=== PATIENT | female | born 2000 | race Caucasian/White ===

== ENCOUNTER → 2022-06-30 15:32 | Outpatient (CLI) | payer OTHER, MEDICAID, SELFPAY ==
[2022-06-30 16:09] LABS: Add Manual Diff / Slide Review NO; Basophils Absolute Auto 0 /uL (0-100); Basophils Percent Auto 0.4 % (0-2); Eosinophils Absolute Auto 100 /uL (0-450); Eosinophils Percent Auto 0.7 % (2-4); Hematocrit 32.6 % (36-46); Hemoglobin 11.2 g/dL (12.0-16.0); Lymphocytes Absolute Auto 1500 /uL (1100-4500); Lymphocytes Percent Auto 21.6 % (25-40); Mean Corpuscular HGB Conc 34.5 % (30-36); Mean Corpuscular Hemoglobin 30.3 PG (26-34); Monocytes Absolute Auto 500 /uL (0-900); Neutrophils Absolute Auto 5000 /uL (1500-7000); Neutrophils Percent Auto 70.3 % (50-75); Platelet Count 228 X10^3/uL (150-400); Red Blood Cell Count 3.71 X10^6/uL (4.0-5.2); Red Cell Distribution Width 13.7 % (11.6-14.8); White Blood Cell Count 7.2 X10^3/uL (4.5-11.0)
[2022-07-01 07:34] LABS: Varicella IgG Antibody <135 index (Immune >165)
[2022-07-01 08:10] LABS: RPR Screen Non Reactive (Non Reactive)
[2022-07-02 18:02] LABS: HIV 1 & 2 Ab/Ag 4th Gen Combo NEGATIVE (NEGATIVE); Hep C Virus Ab w/Reflex Quant NEGATIVE s/c (NEGATIVE); Hepatitis B Surface Antigen NEGATIVE s/c (NEGATIVE); Rubella Antibody IgG 38.8 IU/mL (>15)
[2022-07-02 23:25] LABS: AFP, Serum 37.3 ng/mL (.); Estriol, Free 1.13 ng/mL (.); Inhibin A, Dimeric 217.53 pg/mL (.); Inhibin A, MoM 1.27 (.); Maternal Ethnicity Other (.); Maternal Weight 125 lbs (.); Number of Fetuses No (.); OSBR Risk 1 IN 10000 (.); Results Report (.); Test Results *Screen Negative* (.); hCG, MoM 0.84 (.); hCG, Serum 34646 mIU/mL (.)
== END ==
PROVIDERS: PCP Family Medicine; Referring Provider Obstetrics & Gynecology; Visit Provider Obstetrics & Gynecology
DX: Z34.02 Encounter for supervision of normal first pregnancy, second trimester (principal); Z3A.16 16 weeks gestation of pregnancy
CPT/HCPCS: 36415; 80055; 82105; 82677; 84702; 86336; 86787; 86803; 86850; 86900; 86901; 87077; 87086; 87186; 87389

== ENCOUNTER → 2022-07-27 13:53 | Outpatient (CLI) | payer OTHER, MEDICAID, SELFPAY ==
--- NOTE | 2022-07-27 13:54 | DI.US.S_ITS ---
PROCEDURE: US OB >= 14 WEEKS FETUS INDICATIONS: ANATOMY SCAN OUTSIDE/PRIOR DATING DATA: Last menstrual period (LMP): 03/05/2022 LMP-based estimated date of delivery (MARIA EUGENIA): 12/09/2022. First dating scan (date and location): Today's exam. Estimated date of delivery (MARIA EUGENIA) from first dating scan: Not applicable. The calculations are made using the clinical MARIA EUGENIA of 12/09/2022. TECHNIQUE: Real-time scanning was performed of the fetus, with image documentation and biometric measurements. Endovaginal scanning: Not performed COMPARISON: None. FINDINGS: General: A single living intrauterine gestation is present. Presentation: Breech. Placenta: Placental position is anterior , without previa. Amniotic fluid index: 20.2 cm, normal range is 5-24 cm. Single deepest vertical pocket is 5.4 cm. heart rate: 130 beats per minute. Maternal cervical canal: 4.8 cm long. Normal lower limit is 2.5 cm. biometrics: Biparietal diameter: 4.4 cm, 19 weeks 3 days Head circumference: 16.6 cm, 19 weeks 2 days Abdominal circumference: 14.2 cm, 19 weeks 4 days Femur length: 3.2 cm, 19 weeks 6 days Clinically estimated gestational age: 20 weeks 4 days Composite gestational age from present scan: 19 weeks 4 days Estimated weight and percentile: 304 g, 8th percentile Anatomic survey: Neuro: Ventricles are non-dilated at less than 10 mm. Cisterna magna is normal at 3-11 mm. Cerebellum is normal in size and morphology. Nuchal skin fold: Normal at less than 6 mm between 14-21 weeks gestational age. Face: Nose and lips, facial profile are normal. Spine: No evidence for spina bifida. Heart: 4-chambered heart is present, with normal ventricular outflow tracts. Diaphragm: Diaphragm is intact. Stomach: Left-sided stomach is present. Kidneys: No hydronephrosis. Normal is less than 5 mm in 2nd trimester, less than 7 mm in 3rd trimester. Cord: 3-vessel cord has orthotopic insertion. Bladder: Normal in size. Extremities: All 4 extremities identified. IMPRESSION: Single living intrauterine at 20 weeks 4 days, MARIA EUGENIA of 12/09/2022. Low weight, 304 g and 8 percentile. BALAJI measures 20.2 cm, normal range is 5-24 cm. We strive to produce accurate, complete, and clear reports of imaging services. To assist us in improving patient care, this report was composed using standard report templates and voice recognition software. Therefore, it may contain abnormal punctuation, insertions and/or omissions. Occasional wrong-word or sound-alike substitutions may occur. Though we review the report and make efforts to correct it, we do recommend that the report be read carefully in proper context to recognize any text inaccuracies. Dictated by: Apollo Adamson M.D. on 07/27/2022 at 16:31 Approved by: Apollo Adamson M.D. on 07/27/2022 at 16:35
== END ==
PROVIDERS: PCP Family Medicine; Referring Provider Obstetrics & Gynecology; Visit Provider Obstetrics & Gynecology
DX: O36.5920 Maternal care for other known or suspected poor fetal growth, second trimester, not applicable or unspecified (principal); Z3A.20 20 weeks gestation of pregnancy
CPT/HCPCS: 76811

== ENCOUNTER → 2022-07-28 14:28 | Outpatient (CLI) | payer OTHER, MEDICAID, SELFPAY ==
[2022-07-28 18:58] LABS: Urine N gonorrhoeae NOT DETECTED
[2022-07-28 19:12] LABS: Urine Chlamydia NOT DETECTED
== END ==
PROVIDERS: PCP Family Medicine; Visit Provider Obstetrics & Gynecology
DX: Z34.02 Encounter for supervision of normal first pregnancy, second trimester (principal); Z3A.20 20 weeks gestation of pregnancy
CPT/HCPCS: 87491; 87591

== ENCOUNTER 2022-07-31 18:07 | Observation (INO) | payer OTHER, MEDICAID, SELFPAY ==
[2022-07-31] MEDS: LACTATED RINGERS 1,000 ML 1000 ML IV ×2 (18:50→19:46)
[2022-07-31] MEDS: ONDANSETRON 4 MG/2 ML INJ IV (19:02)
--- NOTE | 2022-07-31 19:11 | DI.US.S_ITS ---
PROCEDURE: US ABDOMEN COMPLETE INDICATIONS: RUQ /RT FLANK PAIN TECHNIQUE: Real-time scanning was performed of the abdominal and retroperitoneal organs, with image documentation. COMPARISON: [facility], US, US OB >= 14 WEEKS FETUS, 07/27/2022, 14:04. FINDINGS: Liver: Liver is normal in size and homogeneous in echotexture. Gallbladder: No findings of gallstones or sludge are seen. The gallbladder wall is not thickened, measuring 3 mm or less. No specific pericholecystic fluid is seen. The sonographic Doll sign is negative. Biliary ducts: Intrahepatic bile ducts are non-dilated. Extrahepatic bile duct caliber measures 2-3 mm. Normal is 6-7 mm or less in diameter, or 10 mm or less post-cholecystectomy. Pancreas: Visualized portions of the pancreas are sonographically normal. Spleen: Spleen is normal in size and homogeneous in echotexture. Kidneys: Kidneys are normal in size and echotexture. Right kidney measures 9.4 cm long; left kidney measures 11.9 cm long. No nephrolithiasis. No solid masses. There is moderate to severe right-sided hydronephrosis seen on the right and mild hydronephrosis seen on the left. The hydronephrosis persists postvoid. Aorta: Not well seen, obscured by overlying bowel gas. Iliacs: Not well seen, obscured by overlying bowel gas. IVC: Intrahepatic inferior vena cava is patent. Miscellaneous: No free abdominal fluid. This patient is , with a measured heart rate of 136 beats per minute. IMPRESSION: Moderate to severe right-sided and mild left-sided hydronephrosis seen. Dictated by: Arslan Sofia M.D. on 07/31/2022 at 19:29 Approved by: Arslan Sofia M.D. on 07/31/2022 at 19:31
[2022-07-31] MEDS: MORPHINE 2 MG/ML INJ 1 MG IV (19:42)
== END 2022-07-31 21:03 | disposition home or self-care (01) ==
PROVIDERS: Admitting Provider Obstetrics & Gynecology; PCP Family Medicine; Referring Provider Obstetrics & Gynecology; Visit Provider Obstetrics & Gynecology
DX: O60.02 Preterm labor without delivery, second trimester (principal); Z3A.21 21 weeks gestation of pregnancy
CPT/HCPCS: 59025; 76700; 96360; 96361; G0378; G0379; J2270; J2405

== ENCOUNTER 2022-08-22 11:32 | Inpatient (IN) | payer OTHER, MEDICAID, SELFPAY ==
[2022-08-22] VITALS (11 sets, daily range): BP systolic 104–120; BP diastolic 55–65; PULSE 90–111; RESP 16–20; TEMP 36.4–37; O2SAT 97–100; BMI 28.2
[2022-08-22 12:12] LABS: Amorphous Sediment Urine 1+; Bacteria Urine Many (>30); Culture Indicated Urine Specimen Cultured; RBC Urine 0-1/HPF (0-5/HPF); WBC Urine 5-10/HPF (0-5/HPF)
--- NOTE | 2022-08-22 12:13 | ED_ITS ---
HPI - General Adult General Chief complaint: Abdominal Pain Stated complaint: pain in rt side, fever, chills, burning on urinat Time Seen by Provider: 08/22/22 11:57 Source: patient Mode of arrival: Ambulatory History of Present Illness HPI narrative: Patient is a 22-year-old female. Is 24 weeks EGA. Approximately 1 month ago was seen by her OB doctor. Was diagnosed with a urinary tract infection. Was placed on 1 antibiotic and was called a couple days later and was told that she needed to switch to something else. The 1st antibiotic per her description sounded like Macrobid. I suspect that the 2nd antibiotic was Keflex. She stated that the 2nd antibiotics caused her quite a bit of GI upset so she did not complete the course of it. She was seen at labor and delivery earlier this month. She was not having any urinary symptoms that time. She was having right-sided flank pain. She stated that she received fluids and had an ultrasound which showed swelling of her kidneys. She does admit that she was not having any urinary symptoms that time. Despite this when she went home she started the antibiotics again that she would left over from the prior visit. She then went on a vacation. She did have some urinary symptoms during her time a vacation however they were not consistent. Over the past 24 hours she stated that she now has dysuria with urgency. She states she is feeling fever and having chills. Is having burning with urination and now has fairly consistent right flank pain. Related Data Home Medications Medication Instructions Recorded Confirmed prenat.vits,lexa,[id number] 1 tab PO DAILY 06/15/22 07/28/22 Allergies Allergy/AdvReac Type Severity Reaction Status Date / Time lactose AdvReac Mild Abdominal Verified 07/28/22 14:22 Pain Review of Systems Constitutional Constitutional: Reports system reviewed and no additional complaints, except as documented Cardiovascular Cardiovascular: Reports system reviewed and no additional complaints, except as documented Respiratory Respiratory: Reports system reviewed and no additional complaints, except as documented Gastrointestinal Gastrointestinal: Reports system reviewed and no additional complaints, except as documented Genitourinary Genitourinary: Reports system reviewed and no additional complaints, except as documented Integumentary/Breasts Skin/Breast: Reports system reviewed and no additional complaints, except as documented Hematologic/Lymphatic On Anticoagulants: No Patient History Medical History Adopted Headache Ovarian cyst Surgical History (Updated 07/03/22 @ 20:43 by Merlyn Sanchez) Anesthesia H/O ovarian cystectomy [place] teeth extracted Family History (Updated 07/03/22 @ 20:43 by Merlyn Sanchez) Mother Mental health problem Social History marital status: unmarried,single number of children: 0 household members: family (parents, sibling & sibling's s/o) lives independently: Yes caregiver/support person: No housing: house pets and animals: Yes (1 dog, fish) education level: high school occupational status: employed current occupational exposures/hazards: No special diane needs: No travel history: recent (domestic only) seatbelt use: always helmet use: Yes water heater temp set < 120 deg: Yes working smoke detector in home: Yes fire extinguisher in home: Yes carbon monox detector in home: Yes firearms in home: Yes firearms unloaded and locked: Yes do you feel safe at home: Yes Smoking Status: Never smoker second hand exposure: No alcohol intake: never substance use type: marijuana (quit when she learned she was ) well-balanced diet: rarely or never daily servings fruits/ve-1 caffeine: No Type(s) of exercise: walking frequency: daily Smoking Status: Never smoker Substance Use Type: does not use Exam Initial Vital Signs Initial Vital Signs: Vital Signs Temperature 98.6 F 08/22/22 11:37 Pulse Rate 105 H 08/22/22 11:37 Respiratory Rate 18 08/22/22 11:37 Blood Pressure 120/58 L 08/22/22 11:37 Pulse Oximetry 99 08/22/22 11:37 Oxygen Delivery Method Room Air 08/22/22 11:37 Const General: cooperative, comfortable and diaphoretic HENMT Head: normal to inspection and normocephalic Resp Effort & Inspection: normal respiratory effort Auscultation: clear to auscultation bilaterally Cardio Rate: tachycardic Rhythm: regular rhythm GI Inspection: normal to inspection Other: Gravid abdomen, no abdominal tenderness Back/Spine/Pelvis Back: CVA tenderness right Skin General: no rashes or lesions noted Neuro General: patient alert, patient awake and moves all extremities Extrem General: capillary refill normal Psych Appearance: grossly normal and well kempt Course Orders Ordered: ED Orders 08/22/22 11:45 Urine Culture Stat Urine Microscopic Stat 08/22/22 12:15 US renal complete Stat 08/22/22 12:19 US OB limited Stat 08/22/22 12:30 Basic Metabolic Panel Stat 08/22/22 12:32 Complete Blood Count AUTO DIFF Stat Lactate (Lactic Acid) Stat Lipase Stat Procalcitonin Stat 08/22/22 12:45 Blood Culture Stat Sodium Chloride (Normal Saline 0.9%) 1,000 mls @ 150 mls/hr IV CONT MAKI Last Admin: 08/22/22 12:53 Dose: 150 mls/hr Documented By: LU Discontinued Medications Hydrocodone Bitart/Acetaminophen (Hydrocodone/Acet 5/325 Tablet) 1 tab PO NOW ONE Stop: 08/22/22 14:47 Last Admin: 08/22/22 14:55 Dose: 1 tab Documented By: CASIMIRO Ceftriaxone Sodium 1,000 mg/ (Sodium Chloride) 100 mls @ 200 mls/hr IV NOW ONE Stop: 08/22/22 12:20 Last Infusion: 08/22/22 13:36 Dose: 0 mls/hr Documented By: Admin: 08/22/22 12:53 Dose: 200 mls/hr Documented By: LU Morphine Sulfate (Morphine 4 Mg/Ml Inj) 4 mg IV NOW ONE Stop: 08/22/22 16:31 Last Admin: 08/22/22 16:43 Dose: 4 mg Documented By: LU Vital Signs Vital signs: Vital Signs - 8 hr 08/22/22 11:37 08/22/22 14:40 08/22/22 14:40 Temperature 98.6 F Pulse Rate 105 H 93 H 90 Respiratory Rate 18 16 Blood Pressure 120/58 L 114/57 L Pulse Oximetry 99 100 100 Oxygen Delivery Method Room Air Room Air 08/22/22 15:00 08/22/22 15:00 08/22/22 15:30 Temperature Pulse Rate 101 H Respiratory Rate Blood Pressure 104/58 L 111/56 L Pulse Oximetry 100 Oxygen Delivery Method Room Air 08/22/22 15:30 08/22/22 16:00 08/22/22 16:00 Temperature Pulse Rate 100 H 98 H Respiratory Rate Blood Pressure 115/60 Pulse Oximetry 100 98 Oxygen Delivery Method 08/22/22 16:30 08/22/22 16:30 08/22/22 17:00 Temperature Pulse Rate 100 H Respiratory Rate Blood Pressure 112/57 L 110/55 L Pulse Oximetry 99 Oxygen Delivery Method 08/22/22 17:00 Temperature Pulse Rate 111 H Respiratory Rate Blood Pressure Pulse Oximetry 97 Oxygen Delivery Method Medical Decision Making Medical Records Medical records reviewed: Yes I reviewed the patient's medical records. Lab Data Lab results reviewed: Yes I reviewed the patient's lab results. 08/22/22 12:32 08/22/22 12:30 Labs: Lab Results 08/22/22 08/22/22 08/22/22 Range/Units 11:45 12:30 12:32 WBC 16.1 H (4.5-11.0) X10^3/uL RBC 2.91 L (4.0-5.2) X10^6/uL Hgb 8.5 L (12.0-16.0) g/dL Hct 25.2 L (36-46) % MCV 86.8 (80-100) fL MCH 29.2 (26-34) PG MCHC 33.7 (30-36) % RDW 13.2 (11.6-14.8) % Plt Count 388 (150-400) X10^3/uL Neut % (Auto) 82.7 H (50-75) % Lymph % (Auto) 6.6 L (25-40) % [place] % (Auto) 10.2 (3-14) % Eos % (Auto) 0.1 L (2-4) % Baso % (Auto) 0.4 (0-2) % Neut # (Auto) 52892 H (8807-6249) /uL Lymph # (Auto) 1100 (9917-8657) /uL [place] # (Auto) 1600 H (0-900) /uL Eos # (Auto) 0 (0-450) /uL Baso # (Auto) 100 (0-100) /uL Sodium 134 L (137-145) mmol/L Potassium 3.2 L (3.4-5.1) mmol/L Chloride 105 (98-107) mmol/L Carbon Dioxide 18 L (22-32) mmol/L BUN 7 (7-17) mg/dL Creatinine 0.38 L (0.52-1.04) mg/dL Estimated GFR > 60 (>60) mL/min BUN/Creatinine Ratio 18.4 (6-22) Glucose 86 (70-100) mg/dL Lactate (0.7-2.1) mmol/L Calcium 8.6 (8.4-10.2) mg/dL Lipase (23-300) U/L Procalcitonin (<0.5) ng/mL Urine RBC 0-1/hpf (0-5/HPF) Urine WBC 5-10/hpf H (0-5/HPF) Amorphous Sediment 1+ Urine Bacteria Many (>30) H (None) Ur Culture Indicated? Specimen cultured 08/22/22 08/22/22 Range/Units 12:32 12:32 WBC (4.5-11.0) X10^3/uL RBC (4.0-5.2) X10^6/uL Hgb (12.0-16.0) g/dL Hct (36-46) % MCV (80-100) fL MCH (26-34) PG MCHC (30-36) % RDW (11.6-14.8) % Plt Count (150-400) X10^3/uL Neut % (Auto) (50-75) % Lymph % (Auto) (25-40) % Ventura % (Auto) (3-14) % Eos % (Auto) (2-4) % Baso % (Auto) (0-2) % Neut # (Auto) (7412-1546) /uL Lymph # (Auto) (7702-1020) /uL Ventura # (Auto) (0-900) /uL Eos # (Auto) (0-450) /uL Baso # (Auto) (0-100) /uL Sodium (137-145) mmol/L Potassium (3.4-5.1) mmol/L Chloride (98-107) mmol/L Carbon Dioxide (22-32) mmol/L BUN (7-17) mg/dL Creatinine (0.52-1.04) mg/dL Estimated GFR (>60) mL/min BUN/Creatinine Ratio (6-22) Glucose (70-100) mg/dL Lactate 0.5 L (0.7-2.1) mmol/L Calcium (8.4-10.2) mg/dL Lipase 86 (23-300) U/L Procalcitonin 0.16 (<0.5) ng/mL Urine RBC (0-5/HPF) Urine WBC (0-5/HPF) Amorphous Sediment Urine Bacteria (None) Ur Culture Indicated? Urine Dip Bedside Urine Glucose Negative Bedside Urine Bilirubin - Negative Bedside Urine Ketone +++ 80 Urine Specific Secretary 1.015 Bedside Urine Occult Blood +/- Bedside Urine pH 6 Bedside Urine Protein + 30 Bedside Urine Urobilinogen - Negative Bedside Urine Nitrite + Positive Bedside Urine Leukocytes + 70 Esterase Point of care testing: Urine Dip Bedside Urine Glucose Negative Bedside Urine Bilirubin - Negative Bedside Urine Ketone +++ 80 Urine Specific Secretary 1.015 Bedside Urine Occult Blood +/- Bedside Urine pH 6 Bedside Urine Protein + 30 Bedside Urine Urobilinogen - Negative Bedside Urine Nitrite + Positive Bedside Urine Leukocytes + 70 Esterase Imaging Data renal US: Radiologist's Impression: PROCEDURE:? US RENAL COMPLETE ? INDICATIONS:? known hydro, EGA 24 weeks now with probable pyelo ? TECHNIQUE:? Real-time scanning was performed of the kidneys and bladder, with image documentation.? ? COMPARISON:? [facility], , US OB LIMITED, 08/22/2022, 13:36.? [facility], , US ABDOMEN COMPLETE, 07/31/2022, 19:44.? [facility], US OB >= 14 WEEKS FETUS, 07/27/2022, 14:04.? [facility], US OB <= 14 WEEKS FETUS, 06/30/2022, 15:18. ? FINDINGS:? ? Kidneys:? Kidneys are normal in size.? Right kidney measures 9.8 cm long; left kidney measures 11.6 cm long.? Right renal cortical thickness is X 1.7 cm; left renal cortical thickness is 1.7 cm.? Renal cortical echotexture is normal.? No nephrolithiasis.? No suspicious solid mass lesions.? ? Moderate right kidney hydronephrosis is seen.? Within the right kidney, multiple echogenic foci can be seen, with the largest measuring up to 5.5 mm.? The proximal right ureter is dilated to 1 cm. ? The previously seen left-sided hydronephrosis is no longer seen.? ? Bladder:? Pre-void bladder volume is 26 mL.? No postvoid residual measurement was obtained, the patient felt no or urge to void.? Pre-void images demonstrate no intraluminal masses or stones.? On pre-void images, neither of the ureteral jets are noted with color Doppler interrogation.? (Of note, ureteral jets may not be detectable in up to 25% of cases due to insufficient differences in specific gravity between ureteral and bladder urine).? ? Miscellaneous:? No free pelvic fluid.? ? Not well seen, obscured by overlying bowel gas. ? ? ? IMPRESSION:? Right kidney hydroureter and hydronephrosis. ? Nonobstructing right-sided kidney stones are seen. ? Resolution of the previously seen left-sided hydronephrosis. US - OB: Radiologist's Impression: PROCEDURE:? US OB LIMITED ? INDICATIONS:? Abdominal pain ? OUTSIDE/PRIOR DATING DATA:? Last menstrual period (LMP):? 03/05/2022.? LMP-based estimated date of delivery (MARIA EUGENIA):? 12/09/2022.? First dating scan (date and location):? 06/30/2022.? Estimated date of delivery (MARIA EUGENIA) from first dating scan:? 12/13/2022. The calculations are made using the clinical MARIA EUGENIA of 12/10/2022.? ? TECHNIQUE: Real-time scanning was performed of the fetus, with image documentation.? Endovaginal scanning:? Performed for additional visualization ? COMPARISON:[facility], , US RENAL COMPLETE, 08/22/2022, 13:20. ? FINDINGS:? A single living intrauterine gestation is present.? Presentation:? Vertex.? Placenta:? Placental position is anterior, without previa.? ? Amniotic fluid index:? 15.7 cm, normal range is 5-24 cm. Single deepest vertical pocket is 4.9 cm.? ? heart rate:? 145 beats per minute.? Maternal cervical canal:? 3 cm long.? Normal lower limit is 2.5 cm.? Clinically estimated gestational age:? 24 weeks 2 days ? The diaphragm, stomach, kidneys, and urinary bladder are unremarkable. ? ? IMPRESSION:? No acute abnormality is seen. [facility] Narrative Medical decision making narrative: OB related ultrasound is unremarkable. It did show a intrauterine with acceptable heart tones. Patient has a resolution of the left-sided hydro however the right-sided is still present. She also has bilateral ureteral jets noted by the proof technician helper. Kidney function is unremarkable. She does have leukocytosis. Does have a nitrite positive urine. Given her presentation today I have a higher suspicion that this is pyelonephritis and a low suspicion that she is an obstructive process such as a ureteral stone. She is a postvoid residual of less than 20 cc. I discussed the case with Dr. Hopkins who is on- call for OB. I did discuss the case with Dr. Lane with urology at [facility]. She stated that there was not any emergent/urgent urologic procedure needed. I did discuss the case with Dr. Hopkins who is on-call for Ob. Patient does require admission to the hospital given her status, pain level, vital signs and diagnosis. Dr. Hopkins will admit for further evaluation and treatment. Discharge Plan Departure Patient Disposition: Admitted As Inpatient Clinical Impression: Pyelonephritis affecting
--- NOTE | 2022-08-22 12:15 | DI.US.S_ITS ---
PROCEDURE: US RENAL COMPLETE INDICATIONS: known hydro, EGA 24 weeks now with probable pyelo TECHNIQUE: Real-time scanning was performed of the kidneys and bladder, with image documentation. COMPARISON: [facility], , US OB LIMITED, 08/22/2022, 13:36. [facility], US, US ABDOMEN COMPLETE, 07/31/2022, 19:44. [facility], , US OB >= 14 WEEKS FETUS, 07/27/2022, 14:04. [facility], US, US OB <= 14 WEEKS FETUS, 06/30/2022, 15:18. FINDINGS: Kidneys: Kidneys are normal in size. Right kidney measures 9.8 cm long; left kidney measures 11.6 cm long. Right renal cortical thickness is X 1.7 cm; left renal cortical thickness is 1.7 cm. Renal cortical echotexture is normal. No nephrolithiasis. No suspicious solid mass lesions. Moderate right kidney hydronephrosis is seen. Within the right kidney, multiple echogenic foci can be seen, with the largest measuring up to 5.5 mm. The proximal right ureter is dilated to 1 cm. The previously seen left-sided hydronephrosis is no longer seen. Bladder: Pre-void bladder volume is 26 mL. No postvoid residual measurement was obtained, the patient felt no or urge to void. Pre-void images demonstrate no intraluminal masses or stones. On pre-void images, neither of the ureteral jets are noted with color Doppler interrogation. (Of note, ureteral jets may not be detectable in up to 25% of cases due to insufficient differences in specific gravity between ureteral and bladder urine). Miscellaneous: No free pelvic fluid. Not well seen, obscured by overlying bowel gas. IMPRESSION: Right kidney hydroureter and hydronephrosis. Nonobstructing right-sided kidney stones are seen. Resolution of the previously seen left-sided hydronephrosis. Dictated by: Arslan Sofia M.D. on 08/22/2022 at 13:25 Approved by: Arslan Sofia M.D. on 08/22/2022 at 13:27
--- NOTE | 2022-08-22 12:19 | DI.US.S_ITS ---
PROCEDURE: US OB LIMITED INDICATIONS: Abdominal pain OUTSIDE/PRIOR DATING DATA: Last menstrual period (LMP): 03/05/2022. LMP-based estimated date of delivery (MARIA EUGENIA): 12/09/2022. First dating scan (date and location): 06/30/2022. Estimated date of delivery (MARIA EUGENIA) from first dating scan: 12/13/2022. The calculations are made using the clinical MARIA EUGENIA of 12/10/2022. TECHNIQUE: Real-time scanning was performed of the fetus, with image documentation. Endovaginal scanning: Performed for additional visualization COMPARISON: [facility], , RENAL COMPLETE, 08/22/2022, 13:20. FINDINGS: A single living intrauterine gestation is present. Presentation: Vertex. Placenta: Placental position is anterior, without previa. Amniotic fluid index: 15.7 cm, normal range is 5-24 cm. Single deepest vertical pocket is 4.9 cm. heart rate: 145 beats per minute. Maternal cervical canal: 3 cm long. Normal lower limit is 2.5 cm. Clinically estimated gestational age: 24 weeks 2 days The diaphragm, stomach, kidneys, and urinary bladder are unremarkable. IMPRESSION: No acute abnormality is seen. Dictated by: Arslan Sofia M.D. on 08/22/2022 at 13:28 Approved by: Arslan Sofia M.D. on 08/22/2022 at 13:30
[2022-08-22 12:50] LABS: Add Manual Diff / Slide Review NO; Basophils Absolute Auto 100 /uL (0-100); Basophils Percent Auto 0.4 % (0-2); Eosinophils Absolute Auto 0 /uL (0-450); Eosinophils Percent Auto 0.1 % (2-4); Hematocrit 25.2 % (36-46); Hemoglobin 8.5 g/dL (12.0-16.0); Lymphocytes Absolute Auto 1100 /uL (1100-4500); Lymphocytes Percent Auto 6.6 % (25-40); Mean Corpuscular HGB Conc 33.7 % (30-36); Mean Corpuscular Hemoglobin 29.2 PG (26-34); Mean Corpuscular Volume 86.8 fL (80-100); Monocytes Absolute Auto 1600 /uL (0-900); Monocytes Percent Auto 10.2 % (3-14); Neutrophils Absolute Auto 13300 /uL (1500-7000); Neutrophils Percent Auto 82.7 % (50-75); Platelet Count 388 X10^3/uL (150-400); Red Blood Cell Count 2.91 X10^6/uL (4.0-5.2); Red Cell Distribution Width 13.2 % (11.6-14.8); White Blood Cell Count 16.1 X10^3/uL (4.5-11.0)
[2022-08-22] MEDS: SODIUM CHLORIDE 0.9% 1,000 ML 150 ML IV (12:53)
[2022-08-22] MEDS: cefTRIAXone 1,000 MG in SODIUM CHLORIDE 0.9% 100 ML 200 MG IV (12:53)
[2022-08-22 13:00] LABS: Lactate (Lactic Acid) 0.5 mmol/L (0.7-2.1); Lipase 86 U/L (23-300)
[2022-08-22 13:39] LABS: Procalcitonin 0.16 ng/mL (<0.5)
[2022-08-22] MEDS: HYDROCODONE/ACET 5/325 TABLET 1 TAB PO (14:55)
[2022-08-22 15:06] LABS: BUN Creatinine Ratio 18.4 (6-22); Blood Urea Nitrogen 7 mg/dL (7-17); Calcium 8.6 mg/dL (8.4-10.2); Carbon Dioxide 18 mmol/L (22-32); Chloride 105 mmol/L (98-107); Estimated Glomerular Filt Rate > 60 mL/min (>60); Glucose 86 mg/dL (70-100); HEMOLYSIS < 15 (0-50); Potassium 3.2 mmol/L (3.4-5.1); Sodium 134 mmol/L (137-145)
[2022-08-22] MEDS: MORPHINE 4 MG/ML INJ IV (16:43)
[2022-08-22] MEDS: ONDANSETRON 4 MG/2 ML INJ IV (17:55)
[2022-08-22] MEDS: LACTATED RINGERS 1,000 ML 100 ML IV (19:03)
[2022-08-22] MEDS: AZTREONAM 1 GM in SODIUM CHLORIDE 0.9% 100 ML IV (19:03)
--- NOTE | 2022-08-22 19:52 | PC.NURSE ---
Report received from WINDY Saldana. Pt resting in bed, states feels much better even though rates her pain at 6/10. Declined pain med at this time. States fetus active. Denies any other c/o. Mother at bedside.
--- NOTE | 2022-08-22 20:00 | PC.NURSE ---
Dr. Hopkins here to assess pt.
--- NOTE | 2022-08-22 20:10 | PM.OBHP.1 ---
OB HPI Date/Time Date of admission: 08/22/22 Date Patient Seen: 08/22/22 Time Patient Seen: 20:10 History of Present Condition Chief complaint: pain in rt side, fever, chills, burning on urinat : 1 Para: 0 Estimated Date of Delivery: 12/10/22 Estimated Gestational Age (weeks): 24+2 Narrative: Carolyn Nguyen is a 22 year old admitted now at 24+ 2 weeks gestational age by LMP-based MARIA EUGENIA with right flank pain due to pyelonephritis. Patient has been experiencing right upper quadrant/right flank pain for the last 2 or 3 weeks and has been diagnosed with right-sided hydronephrosis which is presumed to be the source of her pain. A variety of efforts to mitigate the pain have been effective up until the last few days when her pain has become more constant and is now associated with chills but no documented fever as yet. The patient is also experiencing dysuria and has a history of UTI with Klebsiella earlier this year. She was seen in the emergency department at [facility] earlier today and diagnosed with acute pyelonephritis and persistent moderate-severe right sided hydonephrosis. Telephone consult w/ [facility] did not recommend ureteral stent placement. Blood and urine cultures are pending. She is admitted now for IV antibiotic therapy and pain management. Comments: Dating: LMP: 03/05/2022 (Uncertain), MARIA EUGENIA 12/10/2022 US 1: 04/15/2022: GS=5+4, MARIA EUGENIA 12/12/2022 US 2: 05/06/2022: CRL=7+1, MARIA EUGENIA 12/22/2022 US 3 05/20/2022: CRL=9+6, MARIA EUGENIA 12/17/2022 US 4: 06/10/2022: CRL=13+4, MARIA EUGENIA 12/10/2022 US 5: 07/27/2022: Composite 19+4, MARIA EUGENIA 12/09/2022 History of Present care: good care Dating criteria: LMP confirmed by 1st trimester US Ultrasounds: normal 1st trimester US and normal mid trimester US (Anatomy scan normal, EFW 8th percentile by incorrect MARIA EUGENIA) Medical complications: other (UTI, Right sided pyelonephritis w/ hydronephrosis) Preadmission Labs Blood type: O (+) positive -: Antibody screen: negative, HBsAG: negative, HIV: negative and RPR/VDLR: negative -: Chlamydia screen: not detected and Gonorrhea screen: not detected -: Rubella: immune and Varicella: not immune HCT: 25.2 HCAB: negative PAP: Normal Quad screen: Normal Prior (ies) History: N/A Evaluation Evaluation Baseline heart rate: 155 PFSH Medical History Adopted Headache Ovarian cyst Surgical History Anesthesia H/O ovarian cystectomy [place] teeth extracted Family History (Updated 07/03/22 @ 20:43 by Merlyn Sanchez) Mother Mental health problem Social History marital status: unmarried,single number of children: 0 household members: family (parents, sibling & sibling's s/o) lives independently: Yes caregiver/support person: No housing: house pets and animals: Yes (1 dog, fish) education level: high school occupational status: employed current occupational exposures/hazards: No special diane needs: No travel history: recent (domestic only) seatbelt use: always helmet use: Yes water heater temp set < 120 deg: Yes working smoke detector in home: Yes fire extinguisher in home: Yes carbon monox detector in home: Yes firearms in home: Yes firearms unloaded and locked: Yes do you feel safe at home: Yes Smoking Status: Never smoker second hand exposure: No alcohol intake: never substance use type: marijuana (quit when she learned she was ) well-balanced diet: rarely or never daily servings fruits/ve-1 caffeine: No Type(s) of exercise: walking frequency: daily Meds Home Medications and Allergies Home Medications Medication Instructions Recorded Confirmed Type prenat.vits,lexa,dqc-[id number] 1 tab PO DAILY 06/15/22 08/22/22 History Allergies Allergy/AdvReac Type Severity Reaction Status Date / Time lactose AdvReac Mild Abdominal Verified 08/22/22 18:40 Pain Review of Systems Review of Systems Narrative: Problem-specific ROS positives included in HPI OB Exam Vital signs Blood Pressure: 108/56 Pulse Rate: 99 Respiratory Rate: 17 Temperature: 97.6 F HENMT Head: normal to inspection, normocephalic and atraumatic Eyes General: appearance normal, both eyes and all related structures Resp Effort & Inspection: normal respiratory effort and able to speak in complete sentences Auscultation: clear to auscultation bilaterally Cardio Rate: regular rate Rhythm: regular rhythm Heart Sounds: S1 normal, S2 normal and no murmurs Extremities Lower extremity: Yes normal to inspection GI Inspection: normal to inspection Palpation: Yes soft and Yes no hepatosplenomegaly Uterus Location (Fundal Height): 24 Objective Imaging Renal US: Radiologist's impression: PROCEDURE:? US RENAL COMPLETE ? INDICATIONS:? known hydro, EGA 24 weeks now with probable pyelo ? TECHNIQUE:? Real-time scanning was performed of the kidneys and bladder, with image documentation.? ? COMPARISON:? [facility], US OB LIMITED, 08/22/2022, 13:36.? [facility], US ABDOMEN COMPLETE, 07/31/2022, 19:44.? [facility], US OB >= 14 WEEKS FETUS, 07/27/2022, 14:04.? [facility], US OB <= 14 WEEKS FETUS, 06/30/2022, 15:18. ? FINDINGS:? ? Kidneys:? Kidneys are normal in size.? Right kidney measures 9.8 cm long; left kidney measures 11.6 cm long.? Right renal cortical thickness is X 1.7 cm; left renal cortical thickness is 1.7 cm.? Renal cortical echotexture is normal.? No nephrolithiasis.? No suspicious solid mass lesions.? ? Moderate right kidney hydronephrosis is seen.? Within the right kidney, multiple echogenic foci can be seen, with the largest measuring up to 5.5 mm.? The proximal right ureter is dilated to 1 cm. ? The previously seen left-sided hydronephrosis is no longer seen.? ? Bladder:? Pre-void bladder volume is 26 mL.? No postvoid residual measurement was obtained, the patient felt no or urge to void.? Pre-void images demonstrate no intraluminal masses or stones.? On pre-void images, neither of the ureteral jets are noted with color Doppler interrogation.? (Of note, ureteral jets may not be detectable in up to 25% of cases due to insufficient differences in specific gravity between ureteral and bladder urine).? ? Miscellaneous:? No free pelvic fluid.? ? Not well seen, obscured by overlying bowel gas. ? ? ? IMPRESSION:? Right kidney hydroureter and hydronephrosis. ? Nonobstructing right-sided kidney stones are seen. ? Resolution of the previously seen left-sided hydronephrosis. OB US, Limited: Radiologist's impression: PROCEDURE:? US OB LIMITED ? INDICATIONS:? Abdominal pain ? OUTSIDE/PRIOR DATING DATA:? Last menstrual period (LMP):? 03/05/2022.? LMP-based estimated date of delivery (MARIA EUGENIA):? 12/09/2022.? First dating scan (date and location):? 06/30/2022.? Estimated date of delivery (MARIA EUGENIA) from first dating scan:? 12/13/2022. The calculations are made using the clinical MARIA EUGENIA of 12/10/2022.? ? TECHNIQUE: Real-time scanning was performed of the fetus, with image documentation.? Endovaginal scanning:? Performed for additional visualization ? COMPARISON:? [facility], , US RENAL COMPLETE, 08/22/2022, 13:20. ? FINDINGS:? A single living intrauterine gestation is present.? Presentation:? Vertex.? Placenta:? Placental position is anterior, without previa.? ? Amniotic fluid index:? 15.7 cm, normal range is 5-24 cm. Single deepest vertical pocket is 4.9 cm.? ? heart rate:? 145 beats per minute.? Maternal cervical canal:? 3 cm long.? Normal lower limit is 2.5 cm.? Clinically estimated gestational age:? 24 weeks 2 days ? The diaphragm, stomach, kidneys, and urinary bladder are unremarkable. ? ? IMPRESSION:? No acute abnormality is seen. 20 WEEK ANATOMY SCAN: Radiologist's impression: PROCEDURE:? US OB >= 14 WEEKS FETUS ? INDICATIONS:? ANATOMY SCAN ? OUTSIDE/PRIOR DATING DATA:? Last menstrual period (LMP):? 03/05/2022 LMP-based estimated date of delivery (MARIA EUGENIA):? 12/09/2022.? First dating scan (date and location):? Today's exam.? Estimated date of delivery (MARIA EUGENIA) from first dating scan:? Not applicable. The calculations are made using the clinical MARIA EUGENIA of 12/09/2022. ? TECHNIQUE:? Real-time scanning was performed of the fetus, with image documentation and biometric measurements.? Endovaginal scanning:? Not performed ? COMPARISON:? None. ? ? FINDINGS:? ? General:? A single living intrauterine gestation is present.? Presentation:? Breech.? Placenta:? Placental position is anterior , without previa.? ? Amniotic fluid index:? 20.2 cm, normal range is 5-24 cm.? Single deepest vertical pocket is 5.4 cm. heart rate:? 130 beats per minute.? Maternal cervical canal:? 4.8 cm long.? Normal lower limit is 2.5 cm.? ? biometrics:? Biparietal diameter:? 4.4 cm, 19 weeks 3 days Head circumference:? 16.6 cm, 19 weeks 2 days Abdominal circumference:? 14.2 cm, 19 weeks 4 days Femur length:? 3.2 cm, 19 weeks 6 days Clinically estimated gestational age:? 20 weeks 4 days? Composite gestational age from present scan:? 19 weeks 4 days Estimated weight and percentile:? 304 g, 8th percentile ? Anatomic survey:? Neuro:? Ventricles are non-dilated at less than 10 mm.? Cisterna magna is normal at 3-11 mm.? Cerebellum is normal in size and morphology. Nuchal skin fold:? Normal at less than 6 mm between 14-21 weeks gestational age.? Face:? Nose and lips, facial profile are normal.? Spine:? No evidence for spina bifida.? Heart:? 4-chambered heart is present, with normal ventricular outflow tracts.? Diaphragm:? Diaphragm is intact.? Stomach:? Left-sided stomach is present.? Kidneys:? No hydronephrosis.? Normal is less than 5 mm in 2nd trimester, less than 7 mm in 3rd trimester.? Cord:? 3-vessel cord has orthotopic insertion.? Bladder:? Normal in size.? Extremities:? All 4 extremities identified.? ? ? IMPRESSION:? Single living intrauterine at 20 weeks 4 days, MARIA EUGENIA of 12/09/2022. ? Low weight, 304 g and 8 percentile. ? BALAJI measures 20.2 cm, normal range is 5-24 cm. Labs 08/22/22 12:32 08/22/22 12:30 Labs: Laboratory Results - last 24 hr 08/22/22 08/22/22 08/22/22 11:45 12:30 12:32 WBC 16.1 H RBC 2.91 L Hgb 8.5 L Hct 25.2 L MCV 86.8 MCH 29.2 MCHC 33.7 RDW 13.2 Plt Count 388 Neut % (Auto) 82.7 H Lymph % (Auto) 6.6 L [place] % (Auto) 10.2 Eos % (Auto) 0.1 L Baso % (Auto) 0.4 Neut # (Auto) 01909 H Lymph # (Auto) 1100 [place] # (Auto) 1600 H Eos # (Auto) 0 Baso # (Auto) 100 Sodium 134 L Potassium 3.2 L Chloride 105 Carbon Dioxide 18 L BUN 7 Creatinine 0.38 L Estimated GFR > 60 BUN/Creatinine Ratio 18.4 Glucose 86 Lactate Calcium 8.6 Lipase Procalcitonin Urine RBC 0-1/hpf Urine WBC 5-10/hpf H Amorphous Sediment 1+ Urine Bacteria Many (>30) H Ur Culture Indicated? Specimen cultured 08/22/22 08/22/22 12:32 12:32 WBC RBC Hgb Hct MCV MCH MCHC RDW Plt Count Neut % (Auto) Lymph % (Auto) [place] % (Auto) Eos % (Auto) Baso % (Auto) Neut # (Auto) Lymph # (Auto) [place] # (Auto) Eos # (Auto) Baso # (Auto) Sodium Potassium Chloride Carbon Dioxide BUN Creatinine Estimated GFR BUN/Creatinine Ratio Glucose Lactate 0.5 L Calcium Lipase 86 Procalcitonin 0.16 Urine RBC Urine WBC Amorphous Sediment Urine Bacteria Ur Culture Indicated? Assessment and Plan Assessment and Plan Assessment and Plan narrative: ASSESSMENT 1. Intrauterine , 24 +2 wks EGA 2. Pyelonephritis, right 3. Anemia PLAN 1. Admit 2. See admission orders 3. Rationale for admission/treatment and the current management plan reviewed with both the patient and her mother.
[2022-08-22] MEDS: fentaNYL 100 MCG/2 ML INJ 50 MCG IV ×2 (20:15→21:50)
[2022-08-22] MEDS: ACETAMINOPHEN 325 MG TABLET 975 MG PO (21:49)
[2022-08-22] MEDS: ZOLPIDEM 5 MG TABLET PO (21:51)
--- NOTE | 2022-08-22 22:06 | PC.NURSE ---
C/o lower back pain, like an ache, 12/03. States Fentanyl worked for about 15 min. Discussed other pain med options. Decided to take all meds due. Also given Ambien 5mg for sleep, at 2150. Enc to call staff when she needs to go to bathroom. Voiced compliance.
[2022-08-23] VITALS (9 sets, daily range): BP systolic 92–110; BP diastolic 54–67; PULSE 92–110; RESP 16–30; TEMP 36.4–37.1; O2SAT 97–99
[2022-08-23] MEDS: AZTREONAM 1 GM in SODIUM CHLORIDE 0.9% 100 ML IV ×3 (03:18→18:40)
[2022-08-23] MEDS: OXYCODONE IR 5 MG TABLET PO ×2 (03:31→08:07)
[2022-08-23] MEDS: fentaNYL 100 MCG/2 ML INJ 50 MCG IV ×2 (03:32→09:44)
--- NOTE | 2022-08-23 03:41 | PC.NURSE ---
Antibiotic given. Medicated with Fentanyl and Oxy for c/o pain 11/02. FHTs 126, active.
[2022-08-23] MEDS: LACTATED RINGERS 1,000 ML 100 ML IV ×2 (05:31→16:12)
--- NOTE | 2022-08-23 07:28 | PC.NURSE ---
Report received from WINDY Carl. Assumed care. Patient sleeping.
[2022-08-23] MEDS: IRON SUCROSE 200 MG in SODIUM CHLORIDE 0.9% 100 ML 220 MG IV (08:08)
[2022-08-23] MEDS: ONDANSETRON 4 MG/2 ML INJ IV ×2 (10:01→16:12)
--- NOTE | 2022-08-23 10:14 | PC.NURSE ---
Dr. Hopkins at bedside assessing patient and discussing POC.
[2022-08-23] MEDS: MORPHINE 2 MG/ML INJ (10:57)
--- NOTE | 2022-08-23 10:59 | PM.PN.1 ---
Subjective Subjective Date Patient Seen: 08/23/22 Time Patient Seen: 11:00 Interval history: Overnight the patient has experienced continued pain and some N&V associated with IV Fentanyl administration so little PO intake. Her baby remains active. No contractions. She's been afebrile but continues to experience shaking chills on occasion. Exam Vital Signs (past 8 hours): - 08/23/22 10:19 08/23/22 03:33 08/23/22 08:00 Temperature 97.6 F 97.5 F L 98.3 F Pulse Rate 99 H 98 H 92 H Respiratory Rate 17 16 17 Blood Pressure 108/56 L 92/57 L 96/55 L Pulse Oximetry 98 Oxygen Delivery Method Room Air Const General: cooperative, anxious and other (In noticeable pain/discomfort) Nutritional Appearance: average body habitus Orientation: alert and oriented x3 HENMT Head: normal to inspection, atraumatic and abrasion Ears: hearing grossly normal bilaterally Face and sinus: face symmetric Eyes General: appearance normal, both eyes and all related structures Conjunctivae: conjunctivae normal Sclera: sclerae normal EOM: EOM intact bilaterally Neck Neck: normal visual inspection Resp Effort & Inspection: normal respiratory effort and able to speak in complete sentences Auscultation: clear to auscultation bilaterally Cardio Rate: regular rate Rhythm: regular rhythm Heart Sounds: S1 normal, S2 normal and no murmurs GI Inspection: normal to inspection Palpation: soft, no hepatosplenomegaly and tender (Marked R CVAT, RUQ tenderness) Extrem General: no calf tenderness Psych Appearance: grossly normal Mental Status: mental status grossly normal Speech and Movement: speech and movement normal Mood: congruent mood Affect: normal affect Attitude: cooperative Thought Process: normal Thought Content: normal Judgment: judgment good Objective Labs 08/22/22 12:32 08/22/22 12:30 Labs: Laboratory Results - last 24 hr 08/22/22 08/22/22 08/22/22 11:45 12:30 12:32 WBC 16.1 H RBC 2.91 L Hgb 8.5 L Hct 25.2 L MCV 86.8 MCH 29.2 MCHC 33.7 RDW 13.2 Plt Count 388 Neut % (Auto) 82.7 H Lymph % (Auto) 6.6 L [place] % (Auto) 10.2 Eos % (Auto) 0.1 L Baso % (Auto) 0.4 Neut # (Auto) 00626 H Lymph # (Auto) 1100 [place] # (Auto) 1600 H Eos # (Auto) 0 Baso # (Auto) 100 Sodium 134 L Potassium 3.2 L Chloride 105 Carbon Dioxide 18 L BUN 7 Creatinine 0.38 L Estimated GFR > 60 BUN/Creatinine Ratio 18.4 Glucose 86 Lactate Calcium 8.6 Lipase Procalcitonin Urine RBC 0-1/hpf Urine WBC 5-10/hpf H Amorphous Sediment 1+ Urine Bacteria Many (>30) H Ur Culture Indicated? Specimen cultured 08/22/22 08/22/22 12:32 12:32 WBC RBC Hgb Hct MCV MCH MCHC RDW Plt Count Neut % (Auto) Lymph % (Auto) [place] % (Auto) Eos % (Auto) Baso % (Auto) Neut # (Auto) Lymph # (Auto) [place] # (Auto) Eos # (Auto) Baso # (Auto) Sodium Potassium Chloride Carbon Dioxide BUN Creatinine Estimated GFR BUN/Creatinine Ratio Glucose Lactate 0.5 L Calcium Lipase 86 Procalcitonin 0.16 Urine RBC Urine WBC Amorphous Sediment Urine Bacteria Ur Culture Indicated? Urine culture preliminary: GNR, ID/C&S pending [facility] Medical History Adopted Headache Ovarian cyst Surgical History Anesthesia H/O ovarian cystectomy [place] teeth extracted Family History (Updated 07/03/22 @ 20:43 by Merlyn Sanchez) Mother Mental health problem Social History marital status: unmarried,single number of children: 0 household members: family (parents, sibling & sibling's s/o) lives independently: Yes caregiver/support person: No housing: house pets and animals: Yes (1 dog, fish) education level: high school occupational status: employed current occupational exposures/hazards: No special diane needs: No travel history: recent (domestic only) seatbelt use: always helmet use: Yes water heater temp set < 120 deg: Yes working smoke detector in home: Yes fire extinguisher in home: Yes carbon monox detector in home: Yes firearms in home: Yes firearms unloaded and locked: Yes do you feel safe at home: Yes Smoking Status: Never smoker second hand exposure: No alcohol intake: never substance use type: marijuana (quit when she learned she was ) well-balanced diet: rarely or never daily servings fruits/ve-1 caffeine: No Type(s) of exercise: walking frequency: daily Assessment & Plan Assessment and plan (1) Pyelonephritis affecting : Qualifiers: Trimester: second trimester Qualified Code(s): O23.02 - Infections of kidney in , second trimester Status: Acute (2) : Qualifiers: Weeks of gestation: 24 weeks Qualified Code(s): Z3A.24 - 24 weeks gestation of Status: Acute (3) Anemia affecting in second trimester: Status: Acute Plan Pain medication changed to MS 4 mg q 4 hrs PRN and PO Dilaudid 4 mg PO q 4 hrs PRN Continue current AB regimen; adjust as indicated by C&S results when available Repeat CBC in AM 2nd Iron infusion tomorrow If right flank pain is persistent/worsening, Urology consult in AM ([facility] providers are not life skills consultant/available this weekend) Time Spent With Patient Time with patient: 30 to 49 minutes with 50% spent counseling/coordinating care
[2022-08-23] MEDS: ACETAMINOPHEN 325 MG TABLET 975 MG PO (13:44)
--- NOTE | 2022-08-23 14:31 | CM.DPNOTE ---
Faxed clinical to [facility] today at [phone]. JUANITO
[2022-08-23] MEDS: HYDROMORPHONE 2 MG TABLET 4 MG PO ×3 (15:00→23:59)
[2022-08-23] MEDS: MORPHINE 4 MG/ML INJ IV ×2 (16:12→20:55)
[2022-08-23] MEDS: ZOLPIDEM 5 MG TABLET PO (17:21)
--- NOTE | 2022-08-23 19:20 | PC.NURSE ---
16:00 Patient requested Morphine due to unrelieved pain with Dilaudid.
--- NOTE | 2022-08-23 19:23 | PC.NURSE ---
Patient rating pain 4/10, states Morphine relieved some discomfort. Report given to WINDY Espinal.
--- NOTE | 2022-08-23 19:30 | PC.NURSE ---
1105 Patient c/o of back pain of 11/02, gave morphine IV per 's orders.
--- NOTE | 2022-08-23 19:31 | PC.NURSE ---
1135 Luiz antibiotic, Aztreonam, patient more comfortable.
[2022-08-24] VITALS (12 sets, daily range): BP systolic 103–123; BP diastolic 53–72; PULSE 97–111; RESP 18–32; TEMP 36.6–37.4; O2SAT 90–97
--- NOTE | 2022-08-24 00:09 | PC.NURSE ---
heart tones with doppler 140
--- NOTE | 2022-08-24 00:36 | PC.NURSE ---
pt vomitted, warm wash cloth provided to pt, pt got up and brushed her teeth, pt denies zofran at this time and has no other needs at this time
[2022-08-24] MEDS: MORPHINE 4 MG/ML INJ IV ×4 (01:06→13:34)
[2022-08-24] MEDS: LACTATED RINGERS 1,000 ML 100 ML IV (02:41)
[2022-08-24] MEDS: AZTREONAM 1 GM in SODIUM CHLORIDE 0.9% 100 ML IV ×2 (02:42→11:16)
--- NOTE | 2022-08-24 02:46 | PC.NURSE ---
08/23 @ 2140 md welch called to check on pt, updated pt pain 11/02 @ 2100 po dilaudid and iv morphine given, pt tachypnea, pt states she feels like she can't take a deep breath, pt afebrile, pt tachycardic at 105 bpm, blood pressure wnl, as per md welch to keep up with the pain medications q4 and he will consult urology in the morning for a consult.
[2022-08-24] MEDS: HYDROMORPHONE 2 MG TABLET 4 MG PO (04:49)
[2022-08-24 06:29] LABS: Add Manual Diff / Slide Review NO; Basophils Absolute Auto 0 /uL (0-100); Basophils Percent Auto 0.2 % (0-2); Eosinophils Absolute Auto 100 /uL (0-450); Eosinophils Percent Auto 1.7 % (2-4); Hematocrit 21.7 % (36-46); Hemoglobin 7.5 g/dL (12.0-16.0); Lymphocytes Absolute Auto 700 /uL (1100-4500); Lymphocytes Percent Auto 8.7 % (25-40); Mean Corpuscular HGB Conc 34.6 % (30-36); Mean Corpuscular Volume 86.6 fL (80-100); Monocytes Absolute Auto 400 /uL (0-900); Monocytes Percent Auto 4.6 % (3-14); Neutrophils Absolute Auto 7300 /uL (1500-7000); Neutrophils Percent Auto 84.8 % (50-75); Platelet Count 308 X10^3/uL (150-400); Red Blood Cell Count 2.51 X10^6/uL (4.0-5.2); Red Cell Distribution Width 13.1 % (11.6-14.8); White Blood Cell Count 8.6 X10^3/uL (4.5-11.0)
[2022-08-24] MEDS: IRON SUCROSE 200 MG in SODIUM CHLORIDE 0.9% 100 ML 220 MG IV (09:00)
--- NOTE | 2022-08-24 09:03 | DI.US.S_ITS ---
PROCEDURE: US OB >= 14 WEEKS FETUS INDICATIONS: GROWTH ULTRASOUND OUTSIDE/PRIOR DATING DATA: Last menstrual period (LMP): 03/05/2022 LMP-based estimated date of delivery (MARIA EUGENIA): 12/09/2022. First dating scan (date and location): 06/30/2022 Estimated date of delivery (MARIA EUGENIA) from first dating scan: 12/13/2022. The calculations are made using the working MARIA EUGENIA of 12/10/2022. TECHNIQUE: Real-time scanning was performed of the fetus, with image documentation and biometric measurements. Endovaginal scanning: Not indicated COMPARISON: [facility], OB >= 14 WEEKS FETUS, 07/27/2022, 14:04. FINDINGS: General: A single living intrauterine gestation is present. Presentation: Vertex Placenta: Placental position is anterior, without previa. Amniotic fluid index: 15.0 cm, normal range is 5-24 cm. Single deepest vertical pocket is 5.1 cm. heart rate: 136 beats per minute. Maternal cervical canal: 4.0 cm long. Normal lower limit is 2.5 cm. biometrics: Biparietal diameter: 5.8 cm, 24 weeks, 0 day. Head circumference: 21.6 cm, 23 weeks, 4 days. Abdominal circumference: 20.1 cm, 24 weeks, 5 days. Femur length: 4.2 cm, 23 weeks, 5 days. Clinically estimated gestational age: 24 weeks, 4 days. Composite gestational age from present scan: 24 weeks, 0 day. Estimated weight and percentile: 675 grams, 26 percent. IMPRESSION: 1. Single live intrauterine gestation with fetus in vertex presentation. heart rate is 136 beats per minute. Normal amount of amniotic fluid with BALAJI equals 15.0 cm. 2. Normal growth. Estimated weight is at 26 percent. 3. Cervix is closed. Cervical canal measures 4 cm in length. We strive to produce accurate, complete, and clear reports of imaging services. To assist us in improving patient care, this report was composed using standard report templates and voice recognition software. Therefore, it may contain abnormal punctuation, insertions and/or omissions. Occasional wrong-word or sound-alike substitutions may occur. Though we review the report and make efforts to correct it, we do recommend that the report be read carefully in proper context to recognize any text inaccuracies. Dictated by: Elliott Souza M.D. on 08/24/2022 at 9:52 Approved by: Elliott Souza M.D. on 08/24/2022 at 9:54
[2022-08-24] MEDS: ONDANSETRON 4 MG/2 ML INJ IV ×2 (10:57→17:52)
--- NOTE | 2022-08-24 12:13 | DI.US.S_ITS ---
PROCEDURE: US RENAL COMPLETE INDICATIONS: COMPARISON TO 08/22/22 ?STONES TECHNIQUE: Real-time scanning was performed of the kidneys and bladder, with image documentation. COMPARISON: [facility], US, US RENAL COMPLETE, 08/22/2022, 13:20. FINDINGS: Kidneys: Kidneys are normal in size. Right kidney measures 10.7 cm long;. Right renal cortical thickness is 1.5 cm. Right kidney is not evaluated. Renal cortical echotexture is normal. Prominence of right renal collecting system is again seen with punctate echogenic areas within dependent portion of right renal collecting system. Right proximal ureter is dilated and measures 1.2 cm in diameter compared to 1 cm on previous study. No suspicious solid mass lesions. Bladder: Pre-void bladder volume is 418 mL. Post-void residual is 0 mL. Pre-void images demonstrate no intraluminal masses or stones. On pre-void images, bilateral ureteral jets are noted with color Doppler interrogation. (Of note, ureteral jets may not be detectable in up to 25% of cases due to insufficient differences in specific gravity between ureteral and bladder urine). Miscellaneous: No free pelvic fluid. IMPRESSION: 1. [id number] right-sided hydronephrosis unchanged or slightly worsened compared to previous study. Echogenic foci are seen in right renal pelvis without significant through acoustic shadowing and may indicate debris versus tiny stones given patient's history of UTI. 2. Normal appearing urinary bladder with bilateral ureteral jets seen. Dictated by: Elliott Souza M.D. on 08/24/2022 at 13:26 Approved by: Elliott Souza M.D. on 08/24/2022 at 13:28
[2022-08-24] MEDS: ACETAMINOPHEN 325 MG TABLET 975 MG PO ×2 (12:36→20:05)
--- NOTE | 2022-08-24 13:53 | P.CONS_ITS ---
History of Present Illness Consult details Date Patient Seen: 08/24/22 Time Patient Seen: 15:30 Chief complaint: pain in rt side, fever, chills, burning on urinat Requesting provider: Mirta Lopez Narrative: The patient is a 22-year-old 24 week gestation female that presented to the [facility] ED on 08/22/2022, with complaint of urinary urgency, dysuria, and fleeting chills. She was previously diagnosed and treated for Klebsiella UTI 06/30/2022. Initially she was prescribed, what sounds like may have been Macrobid which was subsequently discontinued after culture reports and she was prescribed cephalexin. She experienced GI upset was cephalexin and did not complete the prescription. Then, by history she went on vacation. She was doing well until the several hours prior to presentation [facility] ED. presenting WBC was 16.1. Renal ultrasound 08/22/2022, demonstrated moderate right hydronephrosis and finding of some internal echoes suggesting presence of stones versus debris. Proximal ureter that was visible was dilated to 1 cm. No comment was made regarding presence or absence of ureteral jets on bladder imaging. Abdominal ultrasound 07/31/2022 demonstrated similar moderate right hydronephrosis without evidence of any internal renal collection system debris or shadows suggesting possible small stones. Mild left hydronephrosis was noted on that occasion, which was not subsequently apparent on the study from 08/22/2022. Now, following 48 hours of broad-spectrum antibiotic coverage, WBC is declined 8.6. By Dr. Lopez's report, the patient remains exquisitely tender over the right kidney. Final urine culture 08/22/2022 again grew Klebsiella with resistance to ampicillin and nitrofurantoin. The 1st culture, 07/31/2022 was resistant only to ampicillin. Meds Home Medications and Allergies Home Medications Medication Instructions Recorded Confirmed Type prenat.vits,lexa,[id number] 1 tab PO DAILY 06/15/22 08/22/22 History Allergies Allergy/AdvReac Type Severity Reaction Status Date / Time lactose AdvReac Mild Abdominal Verified 08/22/22 18:40 Pain Review of Systems Review of Systems ROS: Yes All systems reviewed with the patient and are negative except as otherw ise documented Exam Vital Signs (past 8 hours): - 08/24/22 09:03 08/24/22 13:39 Temperature 99.4 F 98.5 F Pulse Rate 111 H 99 H Respiratory Rate 30 H 32 H Blood Pressure 121/64 106/61 Pulse Oximetry 92 Oxygen Delivery Method Room Air Objective Labs 08/24/22 06:15 08/22/22 12:30 Labs: Laboratory Results - last 24 hr 08/24/22 06:15 WBC 8.6 RBC 2.51 L Hgb 7.5 L Hct 21.7 L MCV 86.6 MCH 30.0 MCHC 34.6 RDW 13.1 Plt Count 308 Neut % (Auto) 84.8 H Lymph % (Auto) 8.7 L [place] % (Auto) 4.6 Eos % (Auto) 1.7 L Baso % (Auto) 0.2 Neut # (Auto) 7300 H Lymph # (Auto) 700 L [place] # (Auto) 400 Eos # (Auto) 100 Baso # (Auto) 0 PFSH Medical History (Updated 08/24/22 @ 14:01 by Mayo Kapadia MD) Adopted Headache Ovarian cyst Recurrent UTI Right flank pain Surgical History Anesthesia H/O ovarian cystectomy [place] teeth extracted Family History Mother Mental health problem Social History marital status: unmarried,single number of children: 0 household members: family (parents, sibling & sibling's s/o) lives independently: Yes caregiver/support person: No housing: house pets and animals: Yes (1 dog, fish) education level: high school occupational status: employed current occupational exposures/hazards: No special diane needs: No travel history: recent (domestic only) Safety seatbelt use: always helmet use: Yes water heater temp set < 120 deg: Yes working smoke detector in home: Yes fire extinguisher in home: Yes carbon monox detector in home: Yes firearms in home: Yes firearms unloaded and locked: Yes do you feel safe at home: Yes Tobacco & Substance Use Smoking Status: Never smoker second hand exposure: No alcohol intake: never substance use type: marijuana (quit when she learned she was ) Diet and Exercise well-balanced diet: rarely or never daily servings fruits/ve-1 caffeine: No Type(s) of exercise: walking frequency: daily Assessment & Plan Assessment and plan (1) Pyelonephritis affecting : Qualifiers: Trimester: second trimester Qualified Code(s): O23.02 - Infections of kidney in , second trimester Status: Acute (2) Recurrent UTI: Status: Acute (3) Right flank pain: Status: Acute Plan 1. Continue culture directed antibiotic therapy appropriate for and fetus. Transitioned to appropriate agent any time as she has responded both c linically and via laboratories at 48 hours. 2. Manage right flank pain symptomatically for now with either cold or warm thermotherapy per patient preference with or without analgesics, positioning etc etera, as needed. Reviewed findings, assessment options and recommended plan with and her mother t he bedside today. Explain that there is no current, definite evidence of ureteral stone. Ultrasound 07/31/2022 showed no intrarenal echogenic foci. It is not impossible, but unlikely that in 4 weeks the patient developed multiple stones in the right collecting system. Clinical circumstances and events more greatly support that of intrarenal collecting system debris secondary to pyelonephritis. Reassuring finding today on repeat ultrasound is that of demonstrated ureteral jets. Discussed pros and cons of ureteral stenting. Without convincing evidence stone presence, we will recommend, as above to follow clinically and radiographically closely.
[2022-08-24] MEDS: MORPHINE 2 MG/ML INJ IV (18:34)
--- NOTE | 2022-08-24 21:11 | PC.NURSE ---
2040 md reed called and notified blood transfusion started at 1940, pt reports IV site painful @2019, IV site hard and cold to touch, heat pack applied to IV site, pt requests transfusion to be stopped due to pain at IV site, transfusion stopped @2024, pt anxious and having difficulty breathing, respirations 31 bpm, pt afebrile, blood pressure and heart rate wnl, as per md brianna be does not believe pt is having a transfusion reaction at this time, as per md to give pt a break for 20 minutes, start a new IV and run antibiotic, when antibiotic is complete restart blood transfusion, as per md reed to call md yu for further needs on pt throughout the night
[2022-08-24] MEDS: DOCUSATE 100 MG CAPSULE 200 MG PO (21:57)
[2022-08-24] MEDS: ZOLPIDEM 5 MG TABLET PO (22:34)
--- NOTE | 2022-08-24 22:52 | PC.NURSE ---
1940- RN at bedside with FHR doppler. Listened for 3 minutes. 142-152 FHR. Audible and palpable movement.
[2022-08-25] VITALS (10 sets, daily range): BP systolic 106–113; BP diastolic 62–85; PULSE 77–100; RESP 16–40; TEMP 36.3–36.6; O2SAT 91–100
[2022-08-25] MEDS: ONDANSETRON 4 MG/2 ML INJ IV ×4 (00:02→18:21)
--- NOTE | 2022-08-25 00:36 | TAR.TRANSNT ---
late to start transfusion after PRBC received at 2340 due to availability of second RN for verification
[2022-08-25] MEDS: OXYCODONE IR 5 MG TABLET PO (00:48)
[2022-08-25] MEDS: ACETAMINOPHEN 325 MG TABLET 650 MG PO ×3 (02:21→15:19)
--- NOTE | 2022-08-25 02:46 | PC.NURSE ---
0230: Patient walking around the unit with IV pole.
[2022-08-25] MEDS: CEFAZOLIN VIAL 1 GM in SODIUM CHLORIDE 0.9% 100 ML IV ×2 (05:04→13:21)
--- NOTE | 2022-08-25 06:39 | DI.RAD.S_ITS ---
PROCEDURE: XR CHEST 2V INDICATIONS: tachypnea, desaturation. TECHNIQUE: 2 views of the chest were acquired. COMPARISON: None. FINDINGS: Surgical changes and devices: None. Lungs and pleura: Lower lobe predominant hazy airspace opacities. No effusion. No pneumothorax. Mediastinum: Mediastinal contours are normal. Heart size is normal. Bones and chest wall: No suspicious bony abnormalities. Soft tissues appear unremarkable. IMPRESSION: Lower lobe predominant hazy airspace opacities, suggestive of multifocal pneumonia versus severe pulmonary edema. Dictated by: Apollo Adamson M.D. on 08/25/2022 at 7:55 Approved by: Apollo Adamson M.D. on 08/25/2022 at 7:56
[2022-08-25 06:41] LABS: Add Manual Diff / Slide Review NO; Basophils Absolute Auto 0 /uL (0-100); Basophils Percent Auto 0.3 % (0-2); Eosinophils Absolute Auto 100 /uL (0-450); Hematocrit 28.9 % (36-46); Hemoglobin 9.8 g/dL (12.0-16.0); Lymphocytes Absolute Auto 1000 /uL (1100-4500); Lymphocytes Percent Auto 8.9 % (25-40); Mean Corpuscular HGB Conc 33.7 % (30-36); Mean Corpuscular Hemoglobin 28.8 PG (26-34); Mean Corpuscular Volume 85.5 fL (80-100); Monocytes Absolute Auto 800 /uL (0-900); Monocytes Percent Auto 6.8 % (3-14); Neutrophils Absolute Auto 9600 /uL (1500-7000); Platelet Count 360 X10^3/uL (150-400); Red Blood Cell Count 3.38 X10^6/uL (4.0-5.2); Red Cell Distribution Width 13.4 % (11.6-14.8); White Blood Cell Count 11.6 X10^3/uL (4.5-11.0)
--- NOTE | 2022-08-25 07:35 | P.PN_ITS ---
Subjective Subjective Date Patient Seen: 08/25/22 Time Patient Seen: 07:36 Interval history: Hospital day #4 for further evaluation management of Klebsiella right py elonephritis. Antibiotic coverage was transition to IV cephazolin yesterday per final culture and sensitivity profile. The patient has remained afebrile. She has been able to tolerate p.o. and is not had nausea or vomiting as she had had prior to yesterday afternoon. Abdominal ultrasound yesterday documented bilateral ureteral jets by Doppler. She received 2 units packed RBCs overnight for anemia. New developments appeared early however related to O2 saturation. A chest x-ray has just been performed and official read not posted. My review of the chest 6. A shows no infiltrated put prominent interstitial pattern. No effusion. Exam Vital Signs (past 8 hours): - 08/25/22 02:35 08/25/22 00:31 08/25/22 00:50 Temperature 97.8 F 97.8 F 97.6 F Pulse Rate 95 H 94 H 94 H Respiratory Rate 16 16 16 Blood Pressure 107/85 111/65 109/68 Pulse Oximetry 08/25/22 05:11 Temperature 97.6 F Pulse Rate 87 Respiratory Rate 18 Blood Pressure 106/62 Pulse Oximetry 91 Oxygen Delivery Method Room Air Narrative Exam Narrative: The patient is sitting upright in bedside chair and in no acute distress. She reports that she ?had a rough night?, and complains that her hands and arms or sore from blood draws and IV sites. I did not percuss or palpate her flank. Objective Labs 08/25/22 06:20 08/22/22 12:30 Labs: Laboratory Results - last 24 hr 08/24/22 08/25/22 18:05 06:20 WBC 11.6 H RBC 3.38 L Hgb 9.8 L Hct 28.9 L MCV 85.5 MCH 28.8 MCHC 33.7 RDW 13.4 Plt Count 360 Neut % (Auto) 83.0 H Lymph % (Auto) 8.9 L [place] % (Auto) 6.8 Eos % (Auto) 1.0 L Baso % (Auto) 0.3 Neut # (Auto) 9600 H Lymph # (Auto) 1000 L [place] # (Auto) 800 Eos # (Auto) 100 Baso # (Auto) 0 Blood Type O Positive Antibody Screen Negative Crossmatch See Detail [facility] Medical History (Updated 08/24/22 @ 14:01 by Mayo Kapadia MD) Adopted Headache Ovarian cyst Recurrent UTI Right flank pain Surgical History Anesthesia H/O ovarian cystectomy [place] teeth extracted Family History Mother Mental health problem Social History marital status: unmarried,single number of children: 0 household members: family (parents, sibling & sibling's s/o) lives independently: Yes caregiver/support person: No housing: house pets and animals: Yes (1 dog, fish) education level: high school occupational status: employed current occupational exposures/hazards: No special diane needs: No travel history: recent (domestic only) seatbelt use: always helmet use: Yes water heater temp set < 120 deg: Yes working smoke detector in home: Yes fire extinguisher in home: Yes carbon monox detector in home: Yes firearms in home: Yes firearms unloaded and locked: Yes do you feel safe at home: Yes Smoking Status: Never smoker second hand exposure: No alcohol intake: never substance use type: marijuana (quit when she learned she was ) well-balanced diet: rarely or never daily servings fruits/ve-1 caffeine: No Type(s) of exercise: walking frequency: daily Assessment & Plan Assessment and plan (1) Pyelonephritis affecting : Qualifiers: Trimester: second trimester Qualified Code(s): O23.02 - Infections of kidney in , second trimester Status: Acute Plan 1. Continue appropriate antibiotic therapy for for 14 days then prophylaxis to delivery. Reviewed findings and interval clinical positives with the patient. She is more encouraged today and more excepting of her of expectation that her recovery will be gradual. I am of the opinion she is not harboring stones. If there is for new circumstances the may bring this ended question then repeat ultrasound with Doppler would be indicated. I initially asked her to hold her breakfast until at a chance to discuss interval progress with Dr. Lopez. I have a phone message into her and that regard.
--- NOTE | 2022-08-25 08:47 | PM.PN.1 ---
Subjective Subjective Date Patient Seen: 08/24/22 Time Patient Seen: 17:30 Interval history: Patient is a 22 year old at 24+4 wks gestation who was admitted on Wednesday for a right sided pyelonephritis. Seen by Urology earlier today. Recommended a repeat u/s of right kidney which showed right proximal ureter dilated. No obstructing stones. Patient has had some nausea and vomiting. Exam Vital Signs (past 8 hours): - 08/25/22 02:35 08/25/22 00:50 08/25/22 05:11 Temperature 97.8 F 97.6 F 97.6 F Pulse Rate 95 H 94 H 87 Respiratory Rate 16 16 18 Blood Pressure 107/85 109/68 106/62 Pulse Oximetry 91 Oxygen Delivery Method Room Air Narrative Exam Narrative: Generally: Sitting up in bed, NAD Lungs: CTA bilat CV: RRR Back: Right CVAT FH: 25 cm. Ext: No edema Objective Labs 08/25/22 06:20 08/22/22 12:30 Labs: Laboratory Results - last 24 hr 08/24/22 08/25/22 18:05 06:20 WBC 11.6 H RBC 3.38 L Hgb 9.8 L Hct 28.9 L MCV 85.5 MCH 28.8 MCHC 33.7 RDW 13.4 Plt Count 360 Neut % (Auto) 83.0 H Lymph % (Auto) 8.9 L [place] % (Auto) 6.8 Eos % (Auto) 1.0 L Baso % (Auto) 0.3 Neut # (Auto) 9600 H Lymph # (Auto) 1000 L [place] # (Auto) 800 Eos # (Auto) 100 Baso # (Auto) 0 Blood Type O Positive Antibody Screen Negative Crossmatch See Detail [facility] Medical History (Updated 08/24/22 @ 14:01 by Mayo Kapadia MD) Adopted Headache Ovarian cyst Recurrent UTI Right flank pain Surgical History Anesthesia H/O ovarian cystectomy [place] teeth extracted Family History Mother Mental health problem Social History marital status: unmarried,single number of children: 0 household members: family (parents, sibling & sibling's s/o) lives independently: Yes caregiver/support person: No housing: house pets and animals: Yes (1 dog, fish) education level: high school occupational status: employed current occupational exposures/hazards: No special diane needs: No travel history: recent (domestic only) seatbelt use: always helmet use: Yes water heater temp set < 120 deg: Yes working smoke detector in home: Yes fire extinguisher in home: Yes carbon monox detector in home: Yes firearms in home: Yes firearms unloaded and locked: Yes do you feel safe at home: Yes Smoking Status: Never smoker second hand exposure: No alcohol intake: never substance use type: marijuana (quit when she learned she was ) well-balanced diet: rarely or never daily servings fruits/ve-1 caffeine: No Type(s) of exercise: walking frequency: daily Assessment & Plan Assessment & Plan narrative: Assessment: 22 year old at 24+4 wks gest with right sided pyelo Plan: Switch pain meds to Tylenol sched q 6 hours Change antibiotic to Ancef per C&S Add oxycodone D/C Dilaudid Stool softners 2 U PRBC's
[2022-08-25] MEDS: DOCUSATE 100 MG CAPSULE 200 MG PO (08:49)
--- NOTE | 2022-08-25 11:00 | PC.NURSE ---
Pt crying on the floor of the bathroom. pt states she wants to go home. pt doesn't want help to get up. pt inconsolable. Dr. Lopez notified.
--- NOTE | 2022-08-25 11:04 | PC.NURSE ---
Dr. Lopez in room. Pt reports being very tired and unable to sleep d/t bed, noisy pulse ox, and hourly incentive spirometer. Orders received from Dr. Lopez to stop oxygen, stop incentive spirometer, put mattress pad on bed and turn it off, take pt off pulse ox, give pt 10mg of Ambien x1 now.
--- NOTE | 2022-08-25 11:15 | PC.NURSE ---
pt asked to go to the courtyard to get some air with sig other. Pt tearful but sitting in the sunshine and calming down.
[2022-08-25] MEDS: ZOLPIDEM 5 MG TABLET 10 MG PO (12:02)
--- NOTE | 2022-08-25 15:10 | PC.NURSE ---
pt sleeping. pt denies pain. mother of patient at bedside, will order pt food. pt hasn't eaten much today. pt encouraged to take deep breaths when awake.
--- NOTE | 2022-08-25 18:20 | PC.NURSE ---
pt sleeping today, awakens easily, c/o feeling a little dizzy when out of bed, denies pain. pt encouraged to eat and drink and take deep breaths.
--- NOTE | 2022-08-25 20:36 | P.PN_ITS ---
Subjective Subjective Date Patient Seen: 08/25/22 Time Patient Seen: 14:00 Interval history: Hospital day #4 with right sided pyelo at 24+5 wks gestation Pt did not sleep well last night. Pulse ox kept going off and bed kept moving. She couldn't sleep. Wanted to go home. I am sick of being here. Still some nausea and vomiting. Pain well-controlled. Received 2 Units of PRBC's last evening. Exam Vital Signs (past 8 hours): - 08/25/22 15:20 08/25/22 18:20 Temperature 97.9 F 97.7 F Pulse Rate 89 100 H Respiratory Rate 40 H 40 H Blood Pressure 107/64 111/64 Pulse Oximetry 94 100 Oxygen Delivery Method Nasal Cannula Oxygen Flow Rate 2 Narrative Exam Narrative: Generally: Sitting in chair, crying, moderate emotional distress Lungs: Decreased BS's in bases CV: RRR Back: R CVAT, but decreased Ext: No edema Objective Labs 08/25/22 06:20 08/22/22 12:30 Labs: Laboratory Results - last 24 hr 08/24/22 08/25/22 18:05 06:20 WBC 11.6 H RBC 3.38 L Hgb 9.8 L Hct 28.9 L MCV 85.5 MCH 28.8 MCHC 33.7 RDW 13.4 Plt Count 360 Neut % (Auto) 83.0 H Lymph % (Auto) 8.9 L [place] % (Auto) 6.8 Eos % (Auto) 1.0 L Baso % (Auto) 0.3 Neut # (Auto) 9600 H Lymph # (Auto) 1000 L [place] # (Auto) 800 Eos # (Auto) 100 Baso # (Auto) 0 Blood Type O Positive Antibody Screen Negative Crossmatch See Detail [facility] Medical History (Updated 08/24/22 @ 14:01 by Mayo Kapadia MD) Adopted Headache Ovarian cyst Recurrent UTI Right flank pain Surgical History Anesthesia H/O ovarian cystectomy [place] teeth extracted Family History Mother Mental health problem Social History marital status: unmarried,single number of children: 0 household members: family (parents, sibling & sibling's s/o) lives independently: Yes caregiver/support person: No housing: house pets and animals: Yes (1 dog, fish) education level: high school occupational status: employed current occupational exposures/hazards: No special diane needs: No travel history: recent (domestic only) seatbelt use: always helmet use: Yes water heater temp set < 120 deg: Yes working smoke detector in home: Yes fire extinguisher in home: Yes carbon monox detector in home: Yes firearms in home: Yes firearms unloaded and locked: Yes do you feel safe at home: Yes Smoking Status: Never smoker second hand exposure: No alcohol intake: never substance use type: marijuana (quit when she learned she was ) well-balanced diet: rarely or never daily servings fruits/ve-1 caffeine: No Type(s) of exercise: walking frequency: daily Assessment & Plan Assessment & Plan narrative: Assessment: 22 year old at 24+5 with right pyelo Atelectasis Plan: Incentive spirometry Ambulation Ambien to try to get some continuous sleep Bed change
--- NOTE | 2022-08-25 22:55 | PC.NURSE ---
2100: RN at bedside FHR Doppler. 142. Patient denies leaking, bleeding, ctx. + movement.
[2022-08-26] MEDS: ONDANSETRON 4 MG/2 ML INJ IV ×2 (00:28→05:14)
[2022-08-26] MEDS: ZOLPIDEM 5 MG TABLET 10 MG PO (00:35)
[2022-08-26 00:53] VITALS: BP 105/66; PULSE 72; RESP 24; TEMP 36.4; O2SAT 93
[2022-08-26] MEDS: CEFAZOLIN VIAL 1 GM in SODIUM CHLORIDE 0.9% 100 ML IV ×2 (05:13→15:10)
[2022-08-26] MEDS: ACETAMINOPHEN 325 MG TABLET 650 MG PO (05:18)
[2022-08-26 05:21] VITALS: BP 113/64; PULSE 75; RESP 22; TEMP 36.6; O2SAT 95
[2022-08-26 09:14] LABS: Add Manual Diff / Slide Review NO; Basophils Absolute Auto 100 /uL (0-100); Basophils Percent Auto 0.6 % (0-2); Eosinophils Absolute Auto 100 /uL (0-450); Eosinophils Percent Auto 1.4 % (2-4); Hematocrit 30.4 % (36-46); Hemoglobin 10.6 g/dL (12.0-16.0); Lymphocytes Absolute Auto 1100 /uL (1100-4500); Lymphocytes Percent Auto 12.7 % (25-40); Mean Corpuscular HGB Conc 34.9 % (30-36); Mean Corpuscular Hemoglobin 29.7 PG (26-34); Monocytes Absolute Auto 600 /uL (0-900); Monocytes Percent Auto 7.3 % (3-14); Neutrophils Absolute Auto 6700 /uL (1500-7000); Platelet Count 443 X10^3/uL (150-400); Red Blood Cell Count 3.57 X10^6/uL (4.0-5.2); Red Cell Distribution Width 13.4 % (11.6-14.8); White Blood Cell Count 8.6 X10^3/uL (4.5-11.0)
[2022-08-26 09:24] LABS: BUN Creatinine Ratio 9.5 (6-22); Blood Urea Nitrogen 4 mg/dL (7-17); Calcium 8.4 mg/dL (8.4-10.2); Carbon Dioxide 13 mmol/L (22-32); Chloride 108 mmol/L (98-107); Estimated Glomerular Filt Rate > 60 mL/min (>60); Glucose 69 mg/dL (70-100); HEMOLYSIS < 15 (0-50); Sodium 137 mmol/L (137-145)
[2022-08-26 09:26] LABS: Potassium 2.7 mmol/L (3.4-5.1)
[2022-08-26 11:11] VITALS: BP 106/72; PULSE 81; RESP 26; TEMP 36.6; O2SAT 99
[2022-08-26] MEDS: POTASSIUM CHLORIDE IN WATER 10 MEQ/100 ML PIGGYBACK 100 MEQ IV ×6 (11:18→18:40)
[2022-08-26] MEDS: OXYCODONE IR 5 MG TABLET PO ×2 (16:10→20:12)
[2022-08-26] MEDS: cephALEXin 250 MG CAPSULE 500 MG PO (16:48)
[2022-08-26 17:13] LABS: HEMOLYSIS < 15 (0-50); Potassium 3.8 mmol/L (3.4-5.1)
[2022-08-26 19:50] VITALS: BP 102/63; PULSE 60; RESP 18; TEMP 36.7; O2SAT 100
[2022-08-26 20:24] LABS: HEMOLYSIS < 15 (0-50); Potassium 3.5 mmol/L (3.4-5.1)
--- NOTE | 2022-08-26 20:51 | PC.NURSE ---
Patient awake and resting in bed. Ready to be discharged. IV Potassium is completed. Peripheral IV in left forearm removed at 1945. Patient rates pain 0 at this time. heart tones 140 bpm. Discharge instructions given, patient verbalizes understanding. Patient given 2 take home doses of cephalexin to get her through until tomorrow morning when the pharmacy opens. Patient ambulated from unit accompanied by mother at 2016.
--- NOTE | 2022-08-26 22:01 | P.PN_ITS ---
Subjective Subjective Date Patient Seen: 08/26/22 Time Patient Seen: 08:15 Interval history: Patient feeling much better today. Pain improved. Nausea improved. Slept well last night. Baby moving. Exam Vital Signs (past 8 hours): - 08/26/22 19:50 Temperature 98.1 F Pulse Rate 60 Respiratory Rate 18 Blood Pressure 102/63 Pulse Oximetry 100 Oxygen Delivery Method Nasal Cannula Oxygen Flow Rate 2 Narrative Exam Narrative: Generally: Pt sitting in chair, no acute distress Lungs: CTA bilat Back: Still with right CVAT, but less Ext: No edema Objective Labs 08/26/22 08:53 08/26/22 19:45 Labs: Laboratory Results - last 24 hr 08/26/22 08/26/22 08/26/22 08:53 08:53 16:55 WBC 8.6 RBC 3.57 L Hgb 10.6 L Hct 30.4 L MCV 85.0 MCH 29.7 MCHC 34.9 RDW 13.4 Plt Count 443 H Neut % (Auto) 78.0 H Lymph % (Auto) 12.7 L [place] % (Auto) 7.3 Eos % (Auto) 1.4 L Baso % (Auto) 0.6 Neut # (Auto) 6700 Lymph # (Auto) 1100 [place] # (Auto) 600 Eos # (Auto) 100 Baso # (Auto) 100 Sodium 137 Potassium 2.7 L* 3.8 Chloride 108 H Carbon Dioxide 13 L BUN 4 L Creatinine 0.42 L Estimated GFR > 60 BUN/Creatinine Ratio 9.5 Glucose 69 L Calcium 8.4 08/26/22 19:45 WBC RBC Hgb Hct MCV MCH MCHC RDW Plt Count Neut % (Auto) Lymph % (Auto) [place] % (Auto) Eos % (Auto) Baso % (Auto) Neut # (Auto) Lymph # (Auto) [place] # (Auto) Eos # (Auto) Baso # (Auto) Sodium Potassium 3.5 Chloride Carbon Dioxide BUN Creatinine Estimated GFR BUN/Creatinine Ratio Glucose Calcium [facility] Medical History (Updated 08/24/22 @ 14:01 by Mayo Kapadia MD) Adopted Headache Ovarian cyst Recurrent UTI Right flank pain Surgical History Anesthesia H/O ovarian cystectomy [place] teeth extracted Family History Mother Mental health problem Social History marital status: unmarried,single number of children: 0 household members: family (parents, sibling & sibling's s/o) lives independently: Yes caregiver/support person: No housing: house pets and animals: Yes (1 dog, fish) education level: high school occupational status: employed current occupational exposures/hazards: No special diane needs: No travel history: recent (domestic only) seatbelt use: always helmet use: Yes water heater temp set < 120 deg: Yes working smoke detector in home: Yes fire extinguisher in home: Yes carbon monox detector in home: Yes firearms in home: Yes firearms unloaded and locked: Yes do you feel safe at home: Yes Smoking Status: Never smoker second hand exposure: No alcohol intake: never substance use type: marijuana (quit when she learned she was ) well-balanced diet: rarely or never daily servings fruits/ve-1 caffeine: No Type(s) of exercise: walking frequency: daily Assessment & Plan Assessment & Plan narrative: Assessment: 22 year old at 24+6 wks gest with resolving right pyelonephritis Hypokalemia, corrected Anemia, s/p 2 U PRBC's Plan: D/C to home F/U 6 days Cephalexin 500mg QID for 5 days and then 500mg daily for remainder of the Warning signs for pyelo reviewed Time Spent With Patient Time with patient: less than 30 minutes
--- NOTE | 2022-10-05 23:50 | P.DS_ITS ---
History of Present Illness History of Present Illness Date Patient Seen: 08/26/22 Time Patient Seen: 07:30 Chief complaint: pain in rt side, fever, chills, burning on urinat Narrative: Patient is a 22-year-old 1 para 0 at 24-,2/7 weeks gestation with right pyelonephritis. Patient slept well last night. Baby moving. No contractions. No chills. Discharge Providers Provider Date of admission: 08/22/22 17:49 Discharge Date: 08/26/22 Primary care physician: Yasmeen Burkett MD Consults: 08/23/22 14:00 Consult to Urology Routine Comment: Consulting Provider: Mayo Kapadia Reason for consultation: , right pyelo, severe R flank pain, hydronephrosis, hydroureter Has provider been notified: No 08/25/22 19:41 Consult to Department Of Sociology Chair Routine Comment: Discharge provider: Mirta Lopez MD Summary Hospital Course Discharge Diagnosis: Right pyelonephritis 24-,3/7 weeks gestation Anemia Hospital Course: Patient is a 22-year-old 1 para 0 at 24-,3/7 weeks gestation who presented with right pyelonephritis. She was initially started on broad- spectrum antibiotics. She had shaking chills. [place] [address]. On hospital day # 1 she continued with pain and nausea and vomiting. She was afebrile. On hospital day # 2 her white count had dropped to 8.6 1000. Hematocrit 28. She was changed to Ancef per cultures and sensitivity. She received blood for anemia. On hospital day # 3 she had some atelectasis and incentive spirometry was ordered. She was ambulated. She received Ambien for sleep. On August 26, 2022 she was discharged home to complete a 7 day course of antibiotics and then an antibiotic daily for the remainder of the . Status at Discharge Cognitive/behavioral status at discharge: oriented Functional status at discharge: independent ambulation Overall status at discharge: patient is progressing back to baseline Time Spent with Patient Time spent: Less than 30 minutes Exam Vital Signs (past 8 hours): Oxygen Delivery Method Nasal Cannula Oxygen Flow Rate 2 Narrative Exam Narrative: Generally: Patient is sitting in bed, no acute distress Lungs: Clear to auscultation bilaterally Cardiovascular: Regular rate and rhythm Back: Slight right CVA tenderness, but markedly improved Fundus: Nontender Extremities: No edema Objective Labs 08/26/22 08:53 08/26/22 19:45 PFSH Medical History (Updated 09/16/22 @ 15:40 by Heide Lo MD) Adopted Headache Ovarian cyst Recurrent UTI Right flank pain Surgical History Anesthesia H/O ovarian cystectomy [place] teeth extracted Family History Mother Mental health problem Social History marital status: unmarried,single number of children: 0 household members: family (parents, sibling & sibling's s/o) lives independently: Yes caregiver/support person: No housing: house pets and animals: Yes (1 dog, fish) education level: high school occupational status: employed current occupational exposures/hazards: No special diane needs: No travel history: recent (domestic only) seatbelt use: always helmet use: Yes water heater temp set < 120 deg: Yes working smoke detector in home: Yes fire extinguisher in home: Yes carbon monox detector in home: Yes firearms in home: Yes firearms unloaded and locked: Yes do you feel safe at home: Yes Smoking Status: Never smoker second hand exposure: No alcohol intake: never substance use type: marijuana (quit when she learned she was ) well-balanced diet: rarely or never daily servings fruits/ve-1 caffeine: No Type(s) of exercise: walking frequency: daily Discharge Assessment & Plan Assessment and Plan Assessment: 22-year-old 1 para 0 at 24-,3/7 weeks gestation with right pyelonephritis, resolving Anemia, status post transfusion Plan of Treatment: Discharge to home Continue cephalexin for 7 more days, and then 1 tablet daily for the remainder of the Signs and symptoms of pyelonephritis and labor reviewed Discharge Plan Discharge Plan Patient Disposition: Home Provider Discharge Comment: Call with fever, chills, or back pain that is getting worse Call with decreased movement, vaginal bleeding, or leakage of fluid Discharge orders & Medications Prescriptions: New cephalexin 500 mg capsule 500 mg PO QID Qty: 28 0RF Rx Instructions: Take one tablet four times a day for the next 7 days Continued prenat.vits,lexa,rio-wanm-uznrz Tablet 1 tab PO DAILY No Action cephalexin 500 mg capsule 500 mg PO DAILY Qty: 60 0RF Rx Instructions: Take one tablet a day for the remainder of the Follow up/Referrals: Mirta Lopez MD [Physician] - 09/02/22 9:45 am Diet/Activity/Treatments Diet: Regular Skin/Wound/Dressing Care Report to your healthcare provider any signs of infection, such as:: chills, fever, night sweats and increased pain Visit Report/Discharge Packet Instructions: How to Use an Incentive Spirometer, DI for Kidney Infection, How to Do Kick Counts Stand Alone Forms: Patient Portal/API, Stroke Signs & Symptoms Discharge Data Primary Care Provider: Yasmeen Burkett Discharges patient from system. Discharge Date/Time: 08/26/22 20:17
== END 2022-08-26 20:17 | disposition home or self-care (01) | DRG 833 ==
LOC: ED 17:32 → LABOR 17:50
PROVIDERS: Obstetrics & Gynecology; Admitting Provider Obstetrics & Gynecology; Emergency Provider Emergency Medicine; PCP Family Medicine; Referring Provider Emergency Medicine; Visit Provider Obstetrics & Gynecology
DX: O23.02 Infections of kidney in pregnancy, second trimester (principal); Z3A.24 24 weeks gestation of pregnancy; O99.012 Anemia complicating pregnancy, second trimester
CPT/HCPCS: 36415; 36430; 71046; 76770; 76811; 76815; 76817; 80048; 81003; 81015; 83605; 83690; 84132; 84145; 85025; 86850; 86900; 86901; 87040; 87077; 87086; 87186; 96360; 99222; 99232; 99284; P9016; J0690; J0696; J1756; J2270; J2405; J3010

== ENCOUNTER 2022-09-24 11:29 | Outpatient (CLI) | payer OTHER, MEDICAID, SELFPAY | END 2022-09-24 12:00 | disposition home or self-care (01) | LOC: LABOR 11:32 → OB 10-14 10:21 | PROVIDERS: PCP Family Medicine; Referring Provider Obstetrics & Gynecology; Visit Provider Obstetrics & Gynecology | DX: O36.8130 Decreased fetal movements, third trimester, not applicable or unspecified (principal); Z3A.29 29 weeks gestation of pregnancy | CPT/HCPCS: G0378; G0379 ==

== ENCOUNTER → 2022-09-28 09:41 | Outpatient (CLI) | payer OTHER, MEDICAID, SELFPAY ==
[2022-09-28 11:25] LABS: Hematocrit 32.7 % (36-46)
[2022-09-28 12:07] LABS: GTT (PREG) 1 Hour PP 50gm Dose 105 mg/dL (76-139)
== END ==
PROVIDERS: PCP Family Medicine; Referring Provider Obstetrics & Gynecology; Visit Provider Obstetrics & Gynecology
DX: Z34.02 Encounter for supervision of normal first pregnancy, second trimester (principal); Z3A.26 26 weeks gestation of pregnancy
CPT/HCPCS: 36415; 82950; 85014; 85018

== ENCOUNTER → 2022-10-13 17:34 | Outpatient (CLI) | payer OTHER, MEDICAID, SELFPAY | PROVIDERS: PCP Family Medicine; Visit Provider Obstetrics & Gynecology | DX: Z34.02 Encounter for supervision of normal first pregnancy, second trimester (principal); Z3A.31 31 weeks gestation of pregnancy | CPT/HCPCS: 87077; 87086; 87186 ==

== ENCOUNTER → 2022-11-18 13:53 | Outpatient (CLI) | payer OTHER, MEDICAID, SELFPAY ==
[2022-11-19 15:35] LABS: Strep Grp B PCR POS for Grp B Strep
== END ==
PROVIDERS: PCP Family Medicine; Visit Provider Specialist
DX: Z34.03 Encounter for supervision of normal first pregnancy, third trimester (principal); Z3A.36 36 weeks gestation of pregnancy
CPT/HCPCS: 87653

== ENCOUNTER 2022-12-08 11:36 | Outpatient (CLI) | payer OTHER, MEDICAID, SELFPAY | END 2022-12-08 12:46 | disposition home or self-care (01) | LOC: LABOR 12:20 → OB 12-10 12:46 | PROVIDERS: PCP Family Medicine; Referring Provider Obstetrics & Gynecology; Visit Provider Obstetrics & Gynecology | DX: O47.1 False labor at or after 37 completed weeks of gestation (principal); Z3A.39 39 weeks gestation of pregnancy | CPT/HCPCS: 59025; G0378; G0379 ==

== ENCOUNTER 2022-12-09 03:31 | Inpatient (IN) | payer OTHER, MEDICAID, SELFPAY ==
[2022-12-09 04:28] LABS: Add Manual Diff / Slide Review NO; Basophils Absolute Auto 100 /uL (0-100); Eosinophils Absolute Auto 0 /uL (0-450); Eosinophils Percent Auto 0.3 % (2-4); Hematocrit 33.7 % (36-46); Hemoglobin 11.7 g/dL (12.0-16.0); Lymphocytes Absolute Auto 2700 /uL (1100-4500); Lymphocytes Percent Auto 24.6 % (25-40); Mean Corpuscular HGB Conc 34.7 % (30-36); Mean Corpuscular Hemoglobin 30.4 PG (26-34); Mean Corpuscular Volume 87.7 fL (80-100); Monocytes Absolute Auto 800 /uL (0-900); Monocytes Percent Auto 7.8 % (3-14); Neutrophils Absolute Auto 7200 /uL (1500-7000); Neutrophils Percent Auto 66.3 % (50-75); Platelet Count 272 X10^3/uL (150-400); Red Blood Cell Count 3.84 X10^6/uL (4.0-5.2); Red Cell Distribution Width 14.7 % (11.6-14.8); White Blood Cell Count 10.8 X10^3/uL (4.5-11.0)
[2022-12-09] MEDS: AMPICILLIN 2,000 MG in SODIUM CHLORIDE 0.9% 100 ML 200 MG IV (05:19)
[2022-12-09] MEDS: LACTATED RINGERS 1,000 ML 100 ML IV (05:23)
--- NOTE | 2022-12-09 05:47 | PM.PNB.1 ---
Peripheral Nerve Block Note Pre-Procedure Reason for block: Peripheral nerve block performed for surgical anesthesia (Labor epidural L 3-4) Consent obtained from: Patient Procedure Date of procedure: 12/09/22 Start Time: 04:40 End Time: 09:27 Performed by: Sherrill Ramon Location: Other (Labor room 8) Position: Sitting Laterality: Bilateral Sterile Technique: Sterile barrier maintained, Sterile gloves, Mask, Sterile drapes and Chloraprep Skin Wheal: Lidocaine 1% (3 ml total with #25g needle SQ to needle depth) Gauge: 18 Equipment Single injection - Needle brand, gauge, length: Sumerian 3.5 inch epidural needle Medications Medications - enter concentration (%) & mL in comment field: Bupivacaine (0.1% with fentanyl 2 mcg per ml.) and Lidocaine (Lidocaine 2% mpf 5 ml total with fentanyl 100 mcg bolus dose) Test Dose: Negative (Lidocaine 1.5% with epi 1:200,000) Vital signs VS: 0430: 147/74 P:79 RR:18 T:36.1 SaO2 100% 0456: 120/66 P: 62 RR: 20 SaO2 100% 0500: 118/78 P:62 RR:22 SaO2 98% 0505: 127/59 P:75 RR:22 SaO2 100% 0510: 121/68 P62 RR 20 SaO2 100% VS in OB record. Reviewed on monitor and strip. Events Nerve Block Events: Procedure uneventful (L3-4 JARVIS on first attempt at 5.5cm, catheter threaded easily and needle removed intact. Catheter at 10cm, pulled back to 8cm, sterile dressing and tape to secure catheter. Repeat of procedure same but catheter at 12 cm. Negative test dose JARVIS at 5.5cm at L3-4. Sterile dressing and tape.) and Other (Prep: 0446, local 0451,catheter 0454, test dose 0455, bolus 0458, infusion 0510; replaced catheter pump off catheter removed with tip intact, prep 0636, local 0641,catheter 0644 test dose 0645, bolus 0650 and infusion pump restarted. Patient comfortable.)
[2022-12-09] MEDS: TERBUTALINE 1 MG/ML VIAL 0.25 MG SUBCUT (06:06)
--- NOTE | 2022-12-09 06:44 | P.HPOB_ITS ---
OB HPI Date/Time Date of admission: 12/09/22 Date Patient Seen: 12/09/22 Time Patient Seen: 06:48 History of Present Condition Chief complaint: Labor : 1 Para: 0 Estimated Date of Delivery: 12/10/22 Estimated Gestational Age (weeks): 39+6 Narrative: Carolyn Nguyen is a 22 year old primigravida admitted in early labor with regular uterine contractions since late last evening but her membranes remain intact. course has been complicated by pyelonephritis at 24 weeks associated with right-sided hydronephrosis for which she is been maintained on daily Keflex 500 mg, and concern early in the regarding possible SGA. Patient's dating is solid and other than the 20 week anatomy scan EFW, mi lestones have been appropriate throughout. GBS is positive. History of Present care: good care Dating criteria: LMP confirmed by 1st trimester US Ultrasounds: normal 1st trimester US and normal mid trimester US Obstetrical complications: none Medical complications: none Preadmission Labs Blood type: O (+) positive -: Antibody screen: negative, GBS status: positive, HBsAG: negative, HIV: negative and RPR/VDLR: negative -: Chlamydia screen: not detected and Gonorrhea screen: not detected -: Rubella: immune and Varicella: not immune HCT: 33.7 HCAB: negative PAP: Normal Quad screen: Normal 1 hr GTT: 105 Prior (ies) History: Primigravida Evaluation Evaluation Baseline heart rate: 135 Variability: Moderate (11-25) monitor accelerations: Present Monitor Decelerations: Early and Episodic Contraction Frequency (minutes): 2 Uterine Contraction Intensity: Moderate Dilation (cm): 4 Effacement (%): 90 Dilation: 3-4 cm Effacement: >/=80% station: -1 Position of cervix: mid Consistency: soft Falcon score: 10 Non-invasive Membranes Rupture Test: negative PFSH Medical History (Updated 11/18/22 @ 14:21 by Heide Lo MD) Adopted Headache Ovarian cyst Recurrent UTI Right flank pain Surgical History Anesthesia H/O ovarian cystectomy [place] teeth extracted Family History Mother Mental health problem Social History marital status: unmarried,single number of children: 0 household members: family (parents, sibling & sibling's s/o) lives independently: Yes caregiver/support person: No housing: house pets and animals: Yes (1 dog, fish) education level: high school occupational status: employed current occupational exposures/hazards: No special diane needs: No travel history: recent (domestic only) seatbelt use: always helmet use: Yes water heater temp set < 120 deg: Yes working smoke detector in home: Yes fire extinguisher in home: Yes carbon monox detector in home: Yes firearms in home: Yes firearms unloaded and locked: Yes do you feel safe at home: Yes Smoking Status: Never smoker second hand exposure: No alcohol intake: never substance use type: marijuana (quit when she learned she was ) well-balanced diet: rarely or never daily servings fruits/ve-1 caffeine: No Type(s) of exercise: walking frequency: daily Meds Home Medications and Allergies Home Medications Medication Instructions Recorded Confirmed Type prenat.vits,lexa,zvz-kggk-dijgr 1 tab PO DAILY 06/15/22 11/23/22 History cephalexin 500 mg capsule 500 mg PO DAILY #60 caps 08/26/22 11/23/22 Rx Allergies Allergy/AdvReac Type Severity Reaction Status Date / Time lactose AdvReac Mild Abdominal Verified 11/23/22 15:25 Pain OB Exam HENMT Head: normal to inspection, normocephalic and atraumatic Eyes General: appearance normal, both eyes and all related structures Resp Effort & Inspection: normal respiratory effort and able to speak in complete sentences Auscultation: clear to auscultation bilaterally Cardio Rate: regular rate Rhythm: regular rhythm Heart Sounds: S1 normal, S2 normal and no murmurs Extremities Lower extremity: Yes normal to inspection GI Inspection: normal to inspection Palpation: Yes soft and Yes no hepatosplenomegaly Uterus Location (Fundal Height): 36 Presentation: vertex Estimated Weight (lbs): 7 Objective Labs 12/09/22 04:15 Labs: Laboratory Results - last 24 hr 12/09/22 12/09/22 04:15 04:15 WBC 10.8 RBC 3.84 L Hgb 11.7 L Hct 33.7 L MCV 87.7 MCH 30.4 MCHC 34.7 RDW 14.7 Plt Count 272 Neut % (Auto) 66.3 Lymph % (Auto) 24.6 L [place] % (Auto) 7.8 Eos % (Auto) 0.3 L Baso % (Auto) 1.0 Neut # (Auto) 7200 H Lymph # (Auto) 2700 [place] # (Auto) 800 Eos # (Auto) 0 Baso # (Auto) 100 Blood Type O Positive Antibody Screen Negative Assessment and Plan Assessment and Plan Assessment and Plan narrative: ASSESSMENT 1. Intrauterine , 39+ 6 weeks gestational age, early labor 2. GBS positive status PLAN 1. Admit for labor and delivery 2. See admission orders
--- NOTE | 2022-12-09 11:28 | PM.OBPRVD ---
Labor & Delivery Delivery date: 12/09/22 Intrapartal Events: None Cervical ripening method: none Induction method: none Delivery monitor: external FHT and external uterine Route of delivery: Episiotomy description: None L&D Laceration Description: Perineal - 1st Degree Delivery repair: chromic Quantitative Blood Loss: 50 Anesthesia Type: Epidural Complications: None Narrative: PROCEDURE: at 39w6d presented in active labor and was admitted to Labor and Delivery. The patient progressed through the 1st stage over 7 hours. SROM occured at 5:24 with clear fluid. She received adequate GBS prophylaxis with ampicillin. Pain was controlled with an epidural. The patient progressed through the 2nd stage over 33 minutes and delivered a viable male infant with APGARs 9/9 at 9:26 via without complications. The cord was cut and clamped after it stopped pulsating. The placenta delivered with gentle cord traction, and appeared complete. The perineum and vagina were inspected with small 1st degree perineal laceration repaired with 3-O Chromic for hemostasis. Needle and sponge counts were correct.? The vagina was inspected and no items were left in situ. Carolyn was doing well with Charly, her and mother at bedside. PREPROCEDURE DIAGNOSIS: Intrauterine at 39w6d Hx of pyelonephritis on suppressive antibiotics GBS positive RH positive POSTPROCEDURE DIAGNOSIS: Intrauterine at 39w6d, delivered Same as preprocedure SGA Baby 1: gender: Male Presentation: vertex Position: Left Occiput Anterior Placenta delivery description: Spontaneous Cord Vessel Description: 3 Vessels score (1 min): 9 score (5 min): 9 weight: 6 lb 3.966 oz Plan for aftercare: Routine care
[2022-12-09] MEDS: IBUPROFEN 600 MG TABLET PO ×2 (13:55→20:08)
[2022-12-09] MEDS: ACETAMINOPHEN 325 MG TABLET 650 MG PO ×2 (13:56→20:08)
[2022-12-09] MEDS: DERMOPLAST SPRAY 20% 60 ML 1 SPRAY TOP (13:56)
[2022-12-10] MEDS: ACETAMINOPHEN 325 MG TABLET 650 MG PO ×2 (02:16→09:50)
[2022-12-10] MEDS: IBUPROFEN 600 MG TABLET PO ×2 (02:16→09:50)
[2022-12-10] MEDS: DOCUSATE 100 MG CAPSULE PO (09:50)
== END 2022-12-10 13:10 | disposition home or self-care (01) | DRG 806 ==
PROVIDERS: Obstetrics & Gynecology; Admitting Provider Obstetrics & Gynecology; PCP Family Medicine; Referring Provider Obstetrics & Gynecology; Visit Provider Obstetrics & Gynecology
DX: O99.824 Streptococcus B carrier state complicating childbirth (principal); N12 Tubulo-interstitial nephritis, not specified as acute or chronic; Z37.0 Single live birth; O98.82 Other maternal infectious and parasitic diseases complicating childbirth; N13.30 Unspecified hydronephrosis; O99.892 Other specified diseases and conditions complicating childbirth; Z3A.39 39 weeks gestation of pregnancy; O70.0 First degree perineal laceration during delivery
CPT/HCPCS: 36415; 59050; 59400; 59409; 85025; 86850; 86900; 86901; G0379; J0290

== ENCOUNTER → 2024-02-25 13:20 | Outpatient (CLI) | payer BC, SELFPAY ==
[2024-02-25 13:56] LABS: Appearance Urine UA SL CLOUDY; Bilirubin Urine UA NEGATIVE (NEGATIVE); Color Urine UA YELLOW; Glucose Urine UA NEGATIVE (Negative); Ketones Urine UA NEGATIVE (NEGATIVE); Leukocyte Esterase Urine UA NEGATIVE (NEGATIVE); Nitrite Urine UA POSITIVE (Negative); Occult Blood Urine UA 1+ (Negative); Protein Urine UA NEGATIVE (Negative); Specific Gravity Urine UA >=1.030 (1.000-1.035); pH Urine UA 5.5 (4.5-8.0)
[2024-02-25 13:57] LABS: Urine Volume 10mL (spun)
[2024-02-25 13:59] LABS: Bacteria Urine Few (2-10); Culture Indicated Urine Specimen Cultured; RBC Urine 1-5/HPF (0-5/HPF); Squamous Epithelial Cell Urine >30 /HPF (0-5/HPF); WBC Urine 1-5/HPF (0-5/HPF)
== END ==
PROVIDERS: Referring Provider Obstetrics & Gynecology; Visit Provider Obstetrics & Gynecology
DX: R30.9 Painful micturition, unspecified (principal); N89.8 Other specified noninflammatory disorders of vagina
CPT/HCPCS: 81001; 87077; 87086; 87186